=== PATIENT | female | born 1965 | race Caucasian/White ===

== ENCOUNTER 2017-01-04 13:19 | Inpatient (IN) | payer BC ==
[~2017-01-04] VITALS: Ht 162.6 cm; Wt 103.0 kg
[2017-01-04] MEDS ORDERED: ACETAMINOPHEN 325 MG TABLET PO ONE (13:45)
[2017-01-04] MEDS ORDERED: IV NORMAL SALINE 1,000ML 1,000 ML IV SCH (13:45)
[2017-01-04] MEDS ORDERED: VANCOMYCIN 1 GM in IV NORMAL SALINE 250ML 250 ML IV ONE (14:00)
[2017-01-04] MEDS ORDERED: ONDANSETRON PF 4 MG/2 ML VIAL. IV ONE (14:00)
[2017-01-04] MEDS ORDERED: VANCOMYCIN 2 GM in IV NORMAL SALINE 500ML 500 ML IV ONE (14:15)
[2017-01-04 14:20] LABS: BASO % 0 % (0-3); EOS % 0 % (0-3); HEMATOCRIT 40.8 % (36.0-47.0); HEMOGLOBIN 13.9 g/dL (12.0-15.5); LYMPH # 0.8 x10^3/uL (1.0-4.8); LYMPH % 4 % (24-48); MEAN CORPUSCULAR HEMOGLOBIN 29 pg (25-35); MEAN CORPUSCULAR HGB CONC 34 g/dL (31-37); MEAN CORPUSCULAR VOLUME 85 fL (79-100); MONO # 1.1 x10^3/uL (0.0-1.1); MONO % 5 % (0-9); NEUT % 91 % (31-73); PLATELET COUNT 220 x10^3/uL (140-400); RED BLOOD COUNT 4.79 x10^6/uL (3.50-5.40); RED CELL DISTRIBUTION WIDTH 12.8 % (11.5-14.5)
[2017-01-04 14:22] LABS: ALBUMIN 3.7 g/dL (3.4-5.0); CALCIUM 8.8 mg/dL (8.5-10.1); CREATININE 0.9 mg/dL (0.6-1.0); GFR 65.5; POTASSIUM 3.7 mmol/L (3.5-5.1); TOTAL BILIRUBIN 0.8 mg/dL (0.2-1.0); TOTAL PROTEIN 7.3 g/dL (6.4-8.2)
--- NOTE | 2017-01-04 14:41 | PHYS DOC ---
Past History Past Medical History: No Pertinent History Past Surgical History: Hysterectomy Alcohol Use: Occasionally Drug Use: None Adult General Chief Complaint Chief Complaint: ALLERGIC REACTION HPI HPI Patient is a 51-year-old female who presents ambulatory to the ED with the complaint of facial redness and swelling, which she had attributed to an allergic reaction. A few days ago, the patient had pain at the base of her skull which ended up going down into her neck and up over the top of her head, mostly painful on the left side of her head. She saw her doctor, they thought maybe it was a migraine. She has been under increased stress. They prescribed Fioricet which she has been taking since last night without relief. She had mild swelling and redness of her face yesterday, it's much worse this morning. She also had a temp of 101 yesterday, she did not know what the source was. Patient denies itching at any time. She has not had any skin lesions, swelling, redness, hives, rash, etc., anywhere else on her body. She denies any injury or bug bite that she knows that might have started this. She's never had anything like this before. Review of Systems Review of Systems Constitutional: Fever first noted yesterday to 101.3 Eyes: She has swelling and redness of the eyelids but the eyes are not affected HENT: Denies nasal congestion or sore throat [] Respiratory: Denies cough or shortness of breath [] Cardiovascular: Denies chest pain GI: Nausea, no vomiting. : Denies dysuria or hematuria [] Musculoskeletal: Denies back pain or joint pain [] Integument: As in history of present illness Neurologic: As in history of present illness Current Medications Current Medications Current Medications Medications (Trade) Dose Ordered Sig/[facility] Start Time Stop Time Status Last Admin Dose Admin Acetaminophen (Tylenol) 650 mg 1X ONCE 01/04/17 13:45 01/04/17 13:46 DC 01/04/17 14:03 625 MG Fentanyl Citrate (Fentanyl 2ml Vial) 50 mcg PRN Q15MIN PRN 01/04/17 14:00 01/05/17 13:59 01/04/17 14:06 50 MCG Ondansetron HCl (Zofran) 4 mg 1X ONCE 01/04/17 14:00 01/04/17 14:01 DC 01/04/17 14:07 4 MG Sodium Chloride 1,000 ml @ 1,000 mls/hr Q1H 01/04/17 13:45 01/04/17 14:44 01/04/17 14:06 1,000 MLS/HR Vancomycin HCl 1 gm/Sodium Chloride 250 ml @ 250 mls/hr 1X ONCE 01/04/17 14:00 01/04/17 14:11 DC Vancomycin HCl 2 gm/Sodium Chloride 500 ml @ 250 mls/hr 1X ONCE 01/04/17 14:15 01/04/17 16:14 01/04/17 14:16 250 MLS/HR Allergies Allergies Allergies Coded Allergies Type Severity Reaction Last Updated Verified No Known Drug Allergies 02/28/15 No Physical Exam Physical Exam Constitutional: Well developed, well nourished, ambulatory, alert, mentating normally, temp 101. HENT: Normocephalic, atraumatic, scalp has a few scattered slightly pinkish red areas, no skin breakdown that I can see. Left external ear/arm: Is moderately red, hot, and swollen. There does not appear to be external otitis or discharge within the EAC. Right ear and EAC normal. Patient has swelling and redness symmetrically bilaterally of the face, both eyelids, upper and lower, nose, cheeks. It is markedly red, warm, and tender. No swelling or lesions of the mouth, or intraorally. Mucous membranes moist. No vesicles. Eyes: conjunctiva normal, no discharge. [] Neck: Normal range of motion, no tenderness, supple, no stridor. [] Cardiovascular:Heart rate regular rhythm, no murmur [] Lungs & Thorax: Bilateral breath sounds clear to auscultation [] Skin: Warm, dry, see above for face, no skin lesions noted below the level of the face. Extremities: No tenderness, no cyanosis, no clubbing, ROM intact, no edema. [] Neurologic: Alert and oriented X 3, normal motor function, no focal deficits noted. [] Current Patient Data Vital Signs Vital Signs Date Time Temp Pulse Resp B/P (MAP) Pulse Ox O2 Delivery O2 Flow Rate FiO2 01/04/17 14:06 20 95 01/04/17 13:20 101.1 95 Room Air Lab Results Laboratory Tests Test 01/04/17 13:50 White Blood Count 23.0 x10^3/uL (4.0-11.0) H Red Blood Count 4.79 x10^6/uL (3.50-5.40) Hemoglobin 13.9 g/dL (12.0-15.5) Hematocrit 40.8 % (36.0-47.0) Mean Corpuscular Volume 85 fL (79-100) Mean Corpuscular Hemoglobin 29 pg (25-35) Mean Corpuscular Hemoglobin Concent 34 g/dL (31-37) Red Cell Distribution Width 12.8 % (11.5-14.5) Platelet Count 220 x10^3/uL (140-400) Neutrophils (%) (Auto) 91 % (31-73) H Lymphocytes (%) (Auto) 4 % (24-48) L Monocytes (%) (Auto) 5 % (0-9) Eosinophils (%) (Auto) 0 % (0-3) Basophils (%) (Auto) 0 % (0-3) Neutrophils # (Auto) 21.0 x10^3uL (1.8-7.7) H Lymphocytes # (Auto) 0.8 x10^3/uL (1.0-4.8) L Monocytes # (Auto) 1.1 x10^3/uL (0.0-1.1) Eosinophils # (Auto) 0.0 x10^3/uL (0.0-0.7) Basophils # (Auto) 0.0 x10^3/uL (0.0-0.2) Platelet Estimate Pending Sodium Level 132 mmol/L (136-145) L Potassium Level 3.7 mmol/L (3.5-5.1) Chloride Level 97 mmol/L (98-107) L Carbon Dioxide Level 24 mmol/L (21-32) Anion Gap 11 (6-14) Blood Urea Nitrogen 10 mg/dL (7-20) Creatinine 0.9 mg/dL (0.6-1.0) Estimated GFR (Cockcroft-Gault) 65.5 BUN/Creatinine Ratio 11 (6-20) Glucose Level 121 mg/dL (70-99) H Lactic Acid Level 1.0 mmol/L (0.4-2.0) Calcium Level 8.8 mg/dL (8.5-10.1) Total Bilirubin 0.8 mg/dL (0.2-1.0) Aspartate Amino Transferase (AST) 147 U/L (15-37) H Alanine Aminotransferase (ALT) 238 U/L (14-59) H Alkaline Phosphatase 116 U/L (46-116) Total Protein 7.3 g/dL (6.4-8.2) Albumin 3.7 g/dL (3.4-5.0) Albumin/Globulin Ratio 1.0 (1.0-1.7) EKG EKG [] Radiology/Procedures Radiology/Procedures [] Course & Med Decision Making Course & Med Decision Making Pertinent Labs and Imaging studies reviewed. (See chart for details) 51-year-old female with facial swelling, redness, and pain, with fever to 101, which started yesterday but is much worse today. The patient thought she had an allergic reaction because she started a new medication last night. The medication was Fioricet. I do not believe her symptoms are due to an allergic reaction. There has been no itching. She has no lesions or redness below the face. I believe her symptoms are from facial cellulitis. White count is 23,000. Lactic acid within normal limits. Due to the acuteness of onset, the patient's nausea and fever, I believe the patient should be hospitalized for IV antibiotics. I discussed this with the patient who is agreeable. I discussed the case with Dr. Navarro, who will admit the patient. We discussed antibiotic choice. I started the patient on vancomycin in the ED and we discussed continuing that and adding Zosyn. I wrote bridge orders. We agreed that the patient would be inpatient status. After the vancomycin had been running about 30 minutes, ED RN informed me that the patient feels itchy. The vancomycin was temporarily stopped and the patient was medicated with IV Benadryl and Solu-Medrol. I do believe we should be covering for MRSA and if the patient is able to tolerate vancomycin that would be my preference. [] Dragon Disclaimer Dragon Disclaimer This chart was dictated in whole or in part using Voice Recognition software in a busy, high-work load, and often noisy Emergency Department environment. It may contain unintended and wholly unrecognized errors or omissions. Departure Departure: Impression: Primary Impression: Facial cellulitis Disposition: ADMITTED INPATIENT Admitting Physician: Shauna Navarro Condition: STABLE Referrals: GINA WARD PAC (PCP) CHILO MIGUEL MD Jan 04, 2017 14:41
[2017-01-04] MEDS ORDERED: ONDANSETRON PF 4 MG/2 ML VIAL. IV PRN (14:45)
[2017-01-04] MEDS ORDERED: methylPREDNISolone SOD SUCC PF 125 MG/2 ML VIAL. IV SCH (15:00)
[2017-01-04] MEDS: IV NORMAL SALINE 1,000ML 1,000 ML IV SCH ×2 (15:00→21:15)
[2017-01-04] MEDS: diphenhydrAMINE 50 MG/ML VIAL IVP PRN (15:01)
[2017-01-04 15:16] LABS: % LYMPHS 4 % (24-48); % MONOS 4 % (0-10); % SEGS 92 % (35-66)
[2017-01-04 15:17] LABS: PLT ESTIMATE ADEQUATE (ADEQUATE)
[2017-01-04 16:00] VITALS: BP 121/76
[2017-01-04] MEDS: VANCOMYCIN PER PHARMACY MC PRN (16:02)
[2017-01-04] MEDS ORDERED: FLU VACC QS2017-18 (36MOS+)/PF 0.5 ML SYRINGE. VAX IM ONE (17:30)
[2017-01-04] MEDS ORDERED: CITA20TA5 PO (17:51)
[2017-01-04] MEDS ORDERED: BUTA1TAB28 PO (17:54)
[2017-01-04] MEDS ORDERED: BUTALB/APAP/CAFEIN 50/325/40MG TABLET. PO PRN (18:15)
[2017-01-04] MEDS: PIPERACILLIN/TAZOBACTAM 3.375 GM in IV NORMAL SALINE 50ML 50 ML IV SCH ×2 (18:16→23:58)
[2017-01-04 19:30] VITALS: BP 114/64
[2017-01-04] MEDS: ASCORBIC ACID 500 MG TABLET PO SCH (21:15)
[2017-01-04] MEDS: LACTOBACILLUS ACIDOPH & BULGAR 1 TABLET. PO SCH (21:15)
[2017-01-04 23:21] VITALS: BP 100/58
[2017-01-05] MEDS: diphenhydrAMINE 50 MG/ML VIAL IVP PRN ×3 (02:28→16:19)
[2017-01-05] MEDS: KETOROLAC 30 MG/ML VIAL. IV PRN ×3 (02:28→19:45)
[2017-01-05] MEDS: VANCOMYCIN 1.5 GM in IV NORMAL SALINE 500ML 500 ML IV SCH ×2 (02:28→16:21)
[2017-01-05 05:56] VITALS: BP 120/72
[2017-01-05] MEDS: PIPERACILLIN/TAZOBACTAM 3.375 GM in IV NORMAL SALINE 50ML 50 ML IV SCH ×3 (06:04→21:34)
[2017-01-05 08:16] LABS: BASO % 0 % (0-3); EOS % 0 % (0-3); HEMATOCRIT 38.3 % (36.0-47.0); HEMOGLOBIN 12.7 g/dL (12.0-15.5); LYMPH % 5 % (24-48); MEAN CORPUSCULAR HEMOGLOBIN 29 pg (25-35); MEAN CORPUSCULAR HGB CONC 33 g/dL (31-37); MEAN CORPUSCULAR VOLUME 86 fL (79-100); MONO # 0.9 x10^3/uL (0.0-1.1); MONO % 4 % (0-9); NEUT # 21.5 x10^3uL (1.8-7.7); NEUT % 92 % (31-73); PLATELET COUNT 219 x10^3/uL (140-400); RED BLOOD COUNT 4.44 x10^6/uL (3.50-5.40); RED CELL DISTRIBUTION WIDTH 13.2 % (11.5-14.5); WHITE BLOOD COUNT 23.4 x10^3/uL (4.0-11.0)
[2017-01-05 08:23] LABS: ALBUMIN 2.7 g/dL (3.4-5.0); ALBUMIN/GLOBULIN RATIO 0.7 (1.0-1.7); MAGNESIUM 2.1 mg/dL (1.8-2.4); POTASSIUM 3.8 mmol/L (3.5-5.1); TOTAL BILIRUBIN 0.4 mg/dL (0.2-1.0); TOTAL PROTEIN 6.7 g/dL (6.4-8.2)
[2017-01-05] MEDS: CITALOPRAM 20 MG TABLET. PO SCH (08:24)
[2017-01-05] MEDS: LACTOBACILLUS ACIDOPH & BULGAR 1 TABLET. PO SCH ×2 (08:24→21:34)
[2017-01-05] MEDS: ASCORBIC ACID 500 MG TABLET PO SCH (08:24)
--- NOTE | 2017-01-05 10:20 | RAD ---
CT scan of the head without contrast 01/05/2017 Clinical history: Sinus pressure and fevers. Technique: Unenhanced, contiguous, 5 mm axial sections were obtained through the head. One or more of the following individualized dose reduction techniques were utilized for this study: 1. Automated exposure control. 2. Adjustment of the mA and/or kV according to patient size. 3. Use of iterative reconstruction technique. Findings: The ventricles and sulci are within normal limits in size and configuration. No area of abnormal attenuation is involving the brain parenchyma. No extra-axial fluid collection is seen. No skull fracture is noted. Impression: Negative study. CT scan of the paranasal sinuses/face without contrast 01/05/2017 Clinical history: Sinus pressure. Fevers. Technique: Unenhanced, contiguous, 0.625 mm axial sections were obtained through the paranasal sinuses. 3 mm reconstructed axial and 5 mm reconstructed sagittal and coronal images were obtained. One or more of the following individualized dose reduction techniques were utilized for this study: 1. Automated exposure control. 2. Adjustment of the mA and/or kV according to patient size. 3. Use of iterative reconstruction technique. Findings: The paranasal sinuses are well are aerated and are clear. No air-fluid level is seen. The mastoid air cells and middle ear cavities are well aerated and are clear. The ostiomeatal units are patent bilaterally. There are small bilateral kieran bullosa. The mucosal structures of the nasopharynx, oropharynx and hypopharynx are within normal limits. Prominent likely reactive lymph nodes are seen throughout the superior neck. No abnormal fluid collection is seen. The parotid and submandibular glands are within normal limits. Preseptal soft tissue swelling is seen involving the right orbit. The orbits are otherwise within normal limits. Impression: Preseptal soft tissue swelling is seen involving the right orbit. Otherwise negative study.
[2017-01-05] MEDS: IV NORMAL SALINE 1,000ML 1,000 ML IV SCH (11:00)
[2017-01-05 11:33] VITALS: BP 149/51
[2017-01-05] MEDS ORDERED: methylPREDNISolone SOD SUCC PF 40 MG/ML VIAL. IV ONE (13:45)
--- NOTE | 2017-01-05 14:10 | HP ---
ADMIT DATE: 01/04/2017 REASON FOR ADMISSION: Facial swelling and pain. HISTORY OF PRESENT ILLNESS: This is a 51-year-old female who presented to the Emergency Room yesterday complaining of facial redness and swelling, which she felt was an allergic reaction, although she cannot recall being bit by anything. The patient had pain at the base of her skull a couple of days ago and was going down into her neck and over the top of her head and mostly painful on the left side of her head. She saw her doctor and was prescribed Fioricet for migraine. However, she did not have any relief and had some mild facial swelling yesterday, but much worse this morning, also had a temperature and complaining of a slight sore throat. PAST MEDICAL HISTORY: Negative. She does have a history of MRSA. PAST SURGICAL HISTORY: She has had back surgery and hysterectomy. MEDICATIONS: None. ALLERGIES: None. FAMILY HISTORY: Father with glaucoma. Mother with glaucoma. HABITS: No tobacco, drugs. Social alcohol. REVIEW OF SYSTEMS: As stated, some slight tenderness behind the left ear. There is mild itching of the face and tenderness of the face. PHYSICAL EXAMINATION: VITAL SIGNS: Temperature yesterday afternoon was 101, now 97.9; pulse 54, blood pressure 149/51, pulse ox 97% on room air. HEENT: Left external ear is swollen, right less so. The TMs are intact with a good cone of light. The eyelids are very swollen with soft tissue swelling, but not injected. Nose is swollen, face swollen. Throat is clear. Mildly injected in the posterior pharynx. NECK: With some positive anterior cervical lymph nodes. LUNGS: Clear to auscultation. CARDIOVASCULAR: Regular rhythm and rate without murmur. ABDOMEN: Soft, nontender. EXTREMITIES: Without edema. LABORATORY DATA: White count is 23,000 yesterday and is still 23.4 this morning; 92% neutrophils. Chemistry, some elevated liver function tests, which are coming down now. CT of the face and head are negative except for soft tissue swelling and some reactive lymph nodes. Strep screen is pending. ASSESSMENT: 1. Presumed facial cellulitis 2. Leukocytosis, suspect sepsis. The blood cultures are pending. Also, MRSA screen is pending. PLAN: She is receiving vancomycin and Zosyn and symptomatic medication and a dose of Solu-Medrol yesterday and today and we will continue to monitor closely. MOE CRISTINA DO DR: JOSE/skinny JOB#: [id number] / [id number]
[2017-01-05 15:01] VITALS: BP 116/78
[2017-01-05 20:45] VITALS: BP 134/87
[2017-01-05 23:58] VITALS: BP 132/88
[2017-01-06 02:05] LABS: BASO % 0 % (0-3); EOS % 0 % (0-3); HEMOGLOBIN 12.1 g/dL (12.0-15.5); LYMPH # 1.2 x10^3/uL (1.0-4.8); LYMPH % 7 % (24-48); MEAN CORPUSCULAR HEMOGLOBIN 29 pg (25-35); MEAN CORPUSCULAR HGB CONC 34 g/dL (31-37); MEAN CORPUSCULAR VOLUME 86 fL (79-100); MONO # 0.8 x10^3/uL (0.0-1.1); MONO % 4 % (0-9); NEUT # 16.7 x10^3uL (1.8-7.7); NEUT % 89 % (31-73); PLATELET COUNT 205 x10^3/uL (140-400); RED BLOOD COUNT 4.17 x10^6/uL (3.50-5.40); RED CELL DISTRIBUTION WIDTH 13.3 % (11.5-14.5); WHITE BLOOD COUNT 18.7 x10^3/uL (4.0-11.0)
[2017-01-06 02:16] LABS: ALBUMIN 2.6 g/dL (3.4-5.0); ALBUMIN/GLOBULIN RATIO 0.7 (1.0-1.7); CALCIUM 8.3 mg/dL (8.5-10.1); CREATININE 0.9 mg/dL (0.6-1.0); GFR 65.5; MAGNESIUM 2.2 mg/dL (1.8-2.4); POTASSIUM 4.5 mmol/L (3.5-5.1); TOTAL BILIRUBIN 0.2 mg/dL (0.2-1.0); TOTAL PROTEIN 6.4 g/dL (6.4-8.2); VANC TR 14.7 mcg/mL (10.0-20.0)
[2017-01-06] MEDS: diphenhydrAMINE 50 MG/ML VIAL IVP PRN ×2 (02:40→13:43)
[2017-01-06] MEDS: VANCOMYCIN 1.5 GM in IV NORMAL SALINE 500ML 500 ML IV SCH ×2 (02:41→15:37)
[2017-01-06] MEDS: VANCOMYCIN PER PHARMACY MC PRN (03:36)
[2017-01-06] MEDS: PIPERACILLIN/TAZOBACTAM 3.375 GM in IV NORMAL SALINE 50ML 50 ML IV SCH ×3 (05:34→22:40)
[2017-01-06 06:15] VITALS: BP 154/70
[2017-01-06] MEDS: ACETAMINOPHEN 325 MG TABLET PO PRN (07:40)
[2017-01-06] MEDS: LACTOBACILLUS ACIDOPH & BULGAR 1 TABLET. PO SCH ×2 (08:18→21:10)
[2017-01-06] MEDS: ASCORBIC ACID 500 MG TABLET PO SCH (08:19)
[2017-01-06] MEDS: CITALOPRAM 20 MG TABLET. PO SCH (08:19)
[2017-01-06 10:49] VITALS: BP 168/85
[2017-01-06] MEDS ORDERED: diphenhydrAMINE HCL 25 MG CAPSULE PO ONE (14:15)
[2017-01-06] MEDS: HYDROcodone/APAP 5/325MG 1 TAB TABLET PO PRN ×2 (14:46→21:14)
[2017-01-06 14:47] VITALS: BP 148/87
[2017-01-06 20:09] VITALS: BP 141/91
[2017-01-07] MEDS: KETOROLAC 30 MG/ML VIAL. IV PRN (01:17)
[2017-01-07] MEDS: diphenhydrAMINE 50 MG/ML VIAL IVP PRN ×2 (01:18→14:12)
--- NOTE | 2017-01-07 01:18 | PN ---
DATE: 01/04/2017 SUBJECTIVE: The patient is sitting on the edge of the bed comfortably in no apparent distress, continued to complain of back pain, headache and itching and requesting Benadryl before treatment with vancomycin, continued to have some periorbital swelling. PHYSICAL EXAMINATION: GENERAL: When I examined her; however, she looked well and was clearly in no apparent respiratory distress. No pallor, jaundice, cyanosis, lymphadenopathy, or thyromegaly. No jugular venous distention. No limb edema. VITAL SIGNS: Her heart rate was 53, blood pressure was 168/85, temperature was 97.6, respiratory rate 20 and oxygen saturation was 96%. HEAD, EYES, EARS, NOSE AND THROAT: Showed normocephalic, atraumatic. NECK: Supple. HEART: Showed normal first and second heart sounds with no gallop, rub or murmur. CHEST: Clear to auscultation. No crepitation or rhonchi. ABDOMEN: Distended, soft, nontender. NEUROLOGIC: She is awake, alert, responding appropriately. Cranial nerves intact. She moves all her extremities without difficulty. She ambulates without assistance or assistive devices. SKIN: Examination of the skin of the face showed that she has facial erythema involving both sides and across the nasal bridge. She has also marked periorbital swelling. Her intake over the last 24 hours was 2700, no output was recorded. LABORATORY DATA: Her lab work this morning showed a white cell count of 18,700, hemoglobin 12, hematocrit 36, MCV 86 and platelet count 205,000 with normal manual differential. Her chemistry showed that her serum sodium was 139, potassium 4.5, chloride was 108, bicarbonate 27, anion gap of 4, BUN 15, creatinine 0.9, estimated GFR was 65 mL per minute. Her glucose 147, calcium was 8.3, magnesium 2.2. Total bilirubin is normal. Her alkaline phosphatase was normal; however, her AST and ALT are elevated. Her total protein was 6.4. Albumin was 2.6. Her vancomycin trough level was 14.7. Her group A streptococcus rapid was negative. Her blood cultures are so far negative. She did have a CT scan of the head and facial bones, which basically showed the ventricles and sulci within normal limits in size and configuration. No area of abnormal attenuation involving the brain parenchyma. No extraaxial fluid collection is seen. No skull fracture is noted. The paranasal sinuses are well aerated and are clear. No air fluid level is seen. The mastoid air cells and middle ear cavities are well aerated and are clear. The ostiomeatal units are patent bilaterally. There are small bilateral kieran bullosa. The mucosal structures, nasopharynx, oropharynx and hypopharynx are within normal limits. Prominent likely reactive lymph nodes are seen throughout the of her neck. No abnormal fluid collection is seen. The biopsy of the submandibular glands are within normal limits. Preseptal soft tissue swelling is seen involving the right orbit. The orbits are; otherwise, within normal limits. PLAN: Obviously the patient seems to be responding clinically. She is afebrile. Her white cell count is trending down. She continued to have complaint of back pain as she has had five surgical operations before. My plan is to arrange for her to have a PICC line and continue in meanwhile with the IV vancomycin and Zosyn, start her on hydrocodone. I will repeat all her lab works tomorrow and decide on further management accordingly. BILLY PRIETO MD DR: SOLOMON/skinny JOB#: [id number] / [id number]
[2017-01-07] MEDS: VANCOMYCIN 1.5 GM in IV NORMAL SALINE 500ML 500 ML IV SCH ×2 (01:43→13:54)
[2017-01-07] MEDS: PIPERACILLIN/TAZOBACTAM 3.375 GM in IV NORMAL SALINE 50ML 50 ML IV SCH ×2 (05:09→13:54)
[2017-01-07 05:48] VITALS: BP 145/94
[2017-01-07 06:00] LABS: BASO # 0.1 x10^3/uL (0.0-0.2); BASO % 1 % (0-3); EOS # 0.5 x10^3/uL (0.0-0.7); EOS % 4 % (0-3); HEMATOCRIT 34.9 % (36.0-47.0); HEMOGLOBIN 11.9 g/dL (12.0-15.5); LYMPH # 2.3 x10^3/uL (1.0-4.8); LYMPH % 17 % (24-48); MEAN CORPUSCULAR HEMOGLOBIN 29 pg (25-35); MEAN CORPUSCULAR HGB CONC 34 g/dL (31-37); MEAN CORPUSCULAR VOLUME 86 fL (79-100); MONO % 8 % (0-9); NEUT # 9.6 x10^3uL (1.8-7.7); NEUT % 71 % (31-73); PLATELET COUNT 262 x10^3/uL (140-400); RED BLOOD COUNT 4.07 x10^6/uL (3.50-5.40); RED CELL DISTRIBUTION WIDTH 12.9 % (11.5-14.5); WHITE BLOOD COUNT 13.6 x10^3/uL (4.0-11.0)
[2017-01-07 06:11] LABS: ALBUMIN 2.4 g/dL (3.4-5.0); ALBUMIN/GLOBULIN RATIO 0.7 (1.0-1.7); C REACTIVE PROTEIN 62.1 mg/L (0-3.3); CALCIUM 7.5 mg/dL (8.5-10.1); CREATININE 0.9 mg/dL (0.6-1.0); GFR 65.5; POTASSIUM 3.7 mmol/L (3.5-5.1); TOTAL BILIRUBIN 0.3 mg/dL (0.2-1.0); TOTAL PROTEIN 5.9 g/dL (6.4-8.2)
[2017-01-07 07:04] LABS: SEDIMENTATION RATE 28 (0-25)
[2017-01-07] MEDS: LACTOBACILLUS ACIDOPH & BULGAR 1 TABLET. PO SCH (08:00)
[2017-01-07] MEDS: ASCORBIC ACID 500 MG TABLET PO SCH (08:01)
[2017-01-07] MEDS: CITALOPRAM 20 MG TABLET. PO SCH (08:02)
[2017-01-07] MEDS: ACETAMINOPHEN 325 MG TABLET PO PRN (08:02)
[2017-01-07 10:40] VITALS: BP 163/96
[2017-01-07] MEDS: HYDROcodone/APAP 5/325MG 1 TAB TABLET PO PRN (11:12)
[2017-01-07] MEDS ORDERED: DAPT500V3 IV (13:28)
[2017-01-07] MEDS ORDERED: ONDA4TAB10 SL (13:30)
[2017-01-07] MEDS ORDERED: HYDR-2758 PO (13:30)
[2017-01-07 13:46] VITALS: BP 169/88
== END 2017-01-07 16:46 | disposition home or self-care (01) | DRG 872 ==
LOC: ER 13:19 → 1 SOUTH 14:40 → ER 15:40
PROVIDERS: ADMIT Family Medicine; ATTEND Family Medicine
PROC: 02HV33Z Insertion of Infusion Device into Superior Vena Cava, Percutaneous Approach (ICD-10-PCS; principal; 2017-01-06)
DX: A41.9 Sepsis, unspecified organism (principal); D72.829 Elevated white blood cell count, unspecified; L03.211 Cellulitis of face; Z86.14 Personal history of Methicillin resistant Staphylococcus aureus infection; Z90.710 Acquired absence of both cervix and uterus; Z83.511 Family history of glaucoma
CPT/HCPCS: 36415; 36569; 70450; 70486; 80053; 80202; 83605; 83735; 85007; 85025; 85651; 86140; 87040; 87070; 87641; 87880; 90686; 96365; 96375; J1200; J1885; J2405; J2543; J2920; J2930; J3010; J3370; J7040; Q0163; 99285-25; J7030

== ENCOUNTER 2017-11-20 21:07 | Inpatient (IN) | payer BC ==
[~2017-11-20] VITALS: Ht 175.3 cm; Wt 86.2 kg
[~2017-11-20 21:07] MED LIST: BUTA1TAB28 PO; CITA20TA6 PO; DAPT500V3 IV; HYDR-2758 PO; ONDA4TAB10 SL
--- NOTE | 2017-11-20 21:16 | ED.ADGEN ---
Past History Past Medical History: No Pertinent History, Arthritis, Other Past Surgical History: Hysterectomy, Other Alcohol Use: Occasionally Drug Use: None Adult General Chief Complaint Chief Complaint ".. I ve gotten sick all of sudden.. fever, chills.... back pain... nausea,.. ".." It feels like I had the flu"... HPI HPI Patient is a 52 year old female who presents with above hx and complaints. Patient has complaints of generalized malaise, myalgia, arthralgia, fever and chills. Patient has some nausea and complaints of frontal headache. Patient states all her joints and muscles hurt so bad it is difficult to even walk. Patient has had a somewhat nonproductive cough. Patient denies any travel or specific ill contacts. Patient denies any history of immunosuppression. Patient does have a chronic history of back pain. Patient one time had a spine stimulator placement. 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 Patient was noted to have generalized rigors and fever on initial evaluation. Review of Systems Review of Systems Constitutional: Complains fever or chills [] Eyes: Denies change in visual acuity, redness, or eye pain [] HENT: Denies nasal congestion or sore throat [] Respiratory: Denies cough or shortness of breath [] Cardiovascular: No additional information not addressed in HPI [] GI: Complaints of generalized abdominal pain, nausea. Denies, vomiting, bloody stools or diarrhea [] : Denies dysuria or hematuria [] Musculoskeletal: Generalized back pain and joint pain [] Integument: Denies rash or skin lesions [] Neurologic: Denies headache, focal weakness or sensory changes [] Endocrine: Denies polyuria or polydipsia [] All other systems were reviewed and found to be within normal limits, except as documented in this note. Family History Family History Noncontributory Current Medications Current Medications Current Medications Medications (Trade) Dose Ordered Sig/[facility] Start Time Stop Time Status Last Admin Dose Admin Lactated Ringer's 1,000 ml @ 1,000 mls/hr Q1H 11/20/17 21:35 11/20/17 22:34 DC 11/20/17 22:08 1,000 MLS/HR Morphine Sulfate (Morphine 10mg Syringe) 10 mg 1X ONCE 11/20/17 22:00 11/20/17 22:01 DC 11/20/17 22:09 10 MG Ondansetron HCl (Zofran Odt) 8 mg 1X ONCE 11/20/17 22:00 11/20/17 22:01 DC 11/20/17 21:49 8 MG See nursing for home meds Allergies Allergies Allergies Coded Allergies Type Severity Reaction Last Updated Verified No Known Drug Allergies 02/28/15 No Physical Exam Physical Exam Constitutional: Moderate acute distress, non-toxic appearance. [] HENT: Normocephalic, atraumatic, bilateral external ears normal, oropharynx moist, no oral exudates, nose clear rhinorrhea Eyes: PERRLA, EOMI, conjunctiva normal, no discharge. [] Fundus benign Neck: Normal range of motion, no tenderness, supple, no stridor. [] Cardiovascular: Tachycardia Heart rate regular rhythm, no murmur [] Lungs & Thorax: Bilateral breath sounds clear to auscultation [] Abdomen: Bowel sounds normal, soft, no tenderness, no masses, no pulsatile masses. Old surgical scar Skin: Warm, dry, left ankle erythema, left ankle rash. [] Back: No tenderness, no CVA tenderness. [] Old surgical scars Extremities: Left calf tenderness, no cyanosis, no clubbing, ROM intact, left ankle edema. [] Neurologic: Alert and oriented X 3, normal motor function, normal sensory function, no focal deficits noted. []DTRs +2 at patella and brachial. Manager Intensive Care equal. Patient ambulatory Psychologic: Affect anxious, judgement normal, mood normal. [] Current Patient Data Vital Signs Vital Signs Date Time Temp Pulse Resp B/P (MAP) Pulse Ox O2 Delivery O2 Flow Rate FiO2 11/20/17 22:35 101 167/96 (119) 97 Room Air 11/20/17 22:09 26 11/20/17 21:38 102.4 Lab Results Laboratory Tests Test 11/20/17 21:55 11/20/17 22:15 White Blood Count 15.6 x10^3/uL (4.0-11.0) H Red Blood Count 5.03 x10^6/uL (3.50-5.40) Hemoglobin 14.3 g/dL (12.0-15.5) Hematocrit 43.1 % (36.0-47.0) Mean Corpuscular Volume 86 fL (79-100) Mean Corpuscular Hemoglobin 28 pg (25-35) Mean Corpuscular Hemoglobin Concent 33 g/dL (31-37) Red Cell Distribution Width 13.0 % (11.5-14.5) Platelet Count 220 x10^3/uL (140-400) Neutrophils (%) (Auto) 90 % (31-73) H Lymphocytes (%) (Auto) 4 % (24-48) L Monocytes (%) (Auto) 5 % (0-9) Eosinophils (%) (Auto) 0 % (0-3) Basophils (%) (Auto) 1 % (0-3) Neutrophils # (Auto) 13.9 x10^3uL (1.8-7.7) H Lymphocytes # (Auto) 0.6 x10^3/uL (1.0-4.8) L Monocytes # (Auto) 0.8 x10^3/uL (0.0-1.1) Eosinophils # (Auto) 0.0 x10^3/uL (0.0-0.7) Basophils # (Auto) 0.2 x10^3/uL (0.0-0.2) Segmented Neutrophils % 86 % (35-66) H Band Neutrophils % 4 % (0-9) Lymphocytes % 3 % (24-48) L Monocytes % 7 % (0-10) Eosinophils % 0 % (0-5) Basophils % 0 % (0-3) Toxic Vacuolation Present Platelet Estimate Adequate (ADEQUATE) Erythrocyte Sedimentation Rate 14 (0-25) Prothrombin Time 9.9 SEC (9.4-11.4) Prothrombin Time INR 1.0 (0.9-1.1) PTT 27 SEC (23-33) Sodium Level 133 mmol/L (136-145) L Potassium Level 3.8 mmol/L (3.5-5.1) Chloride Level 98 mmol/L (98-107) Carbon Dioxide Level 25 mmol/L (21-32) Anion Gap 10 (6-14) Blood Urea Nitrogen 11 mg/dL (7-20) Creatinine 0.9 mg/dL (0.6-1.0) Estimated GFR (Cockcroft-Gault) 65.2 Glucose Level 128 mg/dL (70-99) H Lactic Acid Level 1.0 mmol/L (0.4-2.0) Calcium Level 8.8 mg/dL (8.5-10.1) Magnesium Level 1.8 mg/dL (1.8-2.4) Total Bilirubin 0.6 mg/dL (0.2-1.0) Direct Bilirubin 0.2 mg/dL (0.0-0.2) Aspartate Amino Transferase (AST) 59 U/L (15-37) H Alanine Aminotransferase (ALT) 64 U/L (14-59) H Alkaline Phosphatase 91 U/L (46-116) Creatine Kinase 73 U/L (26-192) Creatine Kinase MB (Mass) < 0.5 ng/mL (0.0-3.6) Creatine Kinase MB Relative Index 0.7 % (0-4) Troponin I Quantitative < 0.017 ng/mL (0-0.055) C-Reactive Protein 90.7 mg/L (0-3.3) H PG-Dbb-A-Type Natriuretic Peptide 207 pg/mL (0-124) H Total Protein 7.5 g/dL (6.4-8.2) Albumin 3.7 g/dL (3.4-5.0) Lipase 106 U/L (73-393) Influenza Type A (Rapid) Negative (NEGATIVE) Influenza Type B (Rapid) Negative (NEGATIVE) Group A Streptococcus Rapid Negative (NEGATIVE) EKG EKG My interpretation of EKG shows a sinus rhythm at 90 bpm. Some nonspecific inferior changes. No findings acute STEMI of contralateral changes[] Radiology/Procedures Radiology/Procedures My interpretation of chest x-ray shows no acute cardio changes. Does have increased infiltrate on right lung field posterior. Has hardware from previous spine stimulator. Borderline cardiomegaly. My interpretation CT of head shows no shift, mass, edema, bleed, or fracture.[] Course & Med Decision Making Course & Med Decision Making Pertinent Labs and Imaging studies reviewed. (See chart for details) Discussed presentation, testing and tx. plan with Dr. Garza. Patient to be admitted to [facility] for further evaluation and treatment. [] Final Impression Final Impression 1. Fever[] 2. Pneumonia 3. Leukocytosis with Elev. Seg. 4. Hyponatremia 5. Elevated Sed. Rate 6. Elevated AST/ALT 7. Lt. Leg Cellulitis Dragon Disclaimer Dragon Disclaimer This electronic medical record was generated, in whole or in part, using a voice recognition dictation system. PAM GOLDBERG MD Nov 20, 2017 21:16
[2017-11-20] MEDS ORDERED: IV RINGERS SOLUTION,LACTATED 1,000 ML IV SCH (21:35)
[2017-11-20] MEDS ORDERED: MORPHINE SULFATE 10 MG/ML SYRINGE. SQ ONE ×2 (22:00→23:45)
[2017-11-20] MEDS ORDERED: ONDANSETRON ODT 4 MG TAB.RAPDIS PO ONE (22:00)
[2017-11-20 22:19] LABS: BASO # 0.2 x10^3/uL (0.0-0.2); BASO % 1 % (0-3); EOS % 0 % (0-3); HEMATOCRIT 43.1 % (36.0-47.0); HEMOGLOBIN 14.3 g/dL (12.0-15.5); LYMPH # 0.6 x10^3/uL (1.0-4.8); LYMPH % 4 % (24-48); MEAN CORPUSCULAR HEMOGLOBIN 28 pg (25-35); MEAN CORPUSCULAR HGB CONC 33 g/dL (31-37); MEAN CORPUSCULAR VOLUME 86 fL (79-100); MONO # 0.8 x10^3/uL (0.0-1.1); MONO % 5 % (0-9); NEUT # 13.9 x10^3uL (1.8-7.7); NEUT % 90 % (31-73); PLATELET COUNT 220 x10^3/uL (140-400); RED BLOOD COUNT 5.03 x10^6/uL (3.50-5.40); WHITE BLOOD COUNT 15.6 x10^3/uL (4.0-11.0)
[2017-11-20 22:42] LABS: ALBUMIN 3.7 g/dL (3.4-5.0); ALK PHOS 91 U/L (46-116); ALT (SGPT) 64 U/L (14-59); ANION GAP 10 (6-14); AST (SGOT) 59 U/L (15-37); BLOOD UREA NITROGEN 11 mg/dL (7-20); C REACTIVE PROTEIN 90.7 mg/L (0-3.3); CALCIUM 8.8 mg/dL (8.5-10.1); CARBON DIOXIDE 25 mmol/L (21-32); CHLORIDE 98 mmol/L (98-107); CREATININE 0.9 mg/dL (0.6-1.0); DIRECT BILIRUBIN 0.2 mg/dL (0.0-0.2); GFR 65.2; GLUCOSE 128 mg/dL (70-99); LIPASE 106 U/L (73-393); MAGNESIUM 1.8 mg/dL (1.8-2.4); POTASSIUM 3.8 mmol/L (3.5-5.1); SODIUM 133 mmol/L (136-145); TOTAL BILIRUBIN 0.6 mg/dL (0.2-1.0); TOTAL PROTEIN 7.5 g/dL (6.4-8.2)
[2017-11-20 22:50] LABS: INFLUENZA A PATIENT NEGATIVE (NEGATIVE); INFLUENZA B PATIENT NEGATIVE (NEGATIVE)
[2017-11-20 22:56] LABS: % BANDS 4 % (0-9); % BASOS 0 % (0-3); % EOS 0 % (0-5); % LYMPHS 3 % (24-48); % MONOS 7 % (0-10); % SEGS 86 % (35-66); PLT ESTIMATE ADEQUATE (ADEQUATE)
[2017-11-20 22:57] LABS: TOXIC VACUOLATION PRESENT
--- NOTE | 2017-11-20 23:08 | RAD ---
CT HEAD INDICATION: severe headache, fever COMPARISON: 01/05/2017 TECHNIQUE: 5 mm contiguous axial images were obtained from the skull base to the vertex in both bone and soft tissue algorithm. Exposure: One or more of the following individualized dose reduction techniques were utilized for this examination: 1. Automated exposure control 2. Adjustment of the mA and/or kV according to patient size 3. Use of iterative reconstruction technique FINDINGS: No abnormal attenuation within the brain parenchyma. No evidence of acute intracranial hemorrhage. No extra-axial fluid collections. No mass effect or midline shift. Ventricular size is appropriate. Basal cisterns are patent. No fractures identified.Cobb-white differentiation is preserved.Globes and orbits are within normal limits. Paranasal sinuses and mastoid air cells are clear. IMPRESSION: No acute intracranial findings. Electronically signed by: Aron Pugh MD (11/20/2017 11:04 PM) [facility]
[2017-11-20 23:26] LABS: SEDIMENTATION RATE 14 (0-25)
[2017-11-20 23:28] LABS: BACTERIA,URINE FEW /HPF (0-FEW); BARBITURATES POS (NEG); BENZODIAZEPINES NEG (NEG); BILIRUBIN,URINE NEG (NEG); CANNABINOIDS NEG (NEG); CLARITY,URINE CLEAR; COCAINE NEG (NEG); COLOR,URINE YELLOW; GLUCOSE,URINE NEG (NEG); METHADONE NEG (NEG); NITRITE,URINE NEG (NEG); OPIATES POS (NEG); PHENCYCLIDINE NEG (NEG); RBC,URINE RARE /HPF (0-2); SQUAMOUS EPITHELIAL CELL,UR FEW /LPF; UROBILINOGEN,URINE 0.2 mg/dL (0.2 mg/dL)
[2017-11-20 23:31] LABS: AMPHETAMINE/METHAMPHETAMINE NEG (NEG)
[2017-11-20] MEDS ORDERED: cefTRIAXone IV Push 2 GM VIAL. IVP ONE (23:45)
[2017-11-20] MEDS ORDERED: ONDANSETRON PF 4 MG/2 ML VIAL. IV PRN (23:45)
[2017-11-21] MEDS ORDERED: VANCOMYCIN 2 GM in IV NORMAL SALINE 500ML 500 ML IV ONE ×2
[2017-11-21] MEDS ORDERED: VANCOMYCIN PER PHARMACY MC PRN
[2017-11-21] MEDS ORDERED: VANCOMYCIN 1 GM in IV NORMAL SALINE 250ML 250 ML IV ONE ×2
[2017-11-21] MEDS ORDERED: IV NORMAL SALINE 500ML 500 ML ONE ×2 (00:32→00:45)
[2017-11-21] MEDS ORDERED: VANCOMYCIN 1 GM VIAL. ONE (00:32)
[2017-11-21] MEDS ORDERED: ONDANSETRON PF 4 MG/2 ML VIAL. IV ONE (01:00)
[2017-11-21 03:13] VITALS: BP 108/69
[2017-11-21] MEDS ORDERED: ACETAMINOPHEN PO PRN (05:15)
[2017-11-21] MEDS ORDERED: BUTALBITAL PO PRN (05:15)
[2017-11-21] MEDS ORDERED: IPRATRPIUM/ALBUTEROL 0.5/2.5MG 3 ML NEBU. ONE (05:48)
[2017-11-21] MEDS: IPRATRPIUM/ALBUTEROL 0.5/2.5MG 3 ML NEBU. NEB SCH ×4 (05:53→20:36)
[2017-11-21 06:21] VITALS: BP 126/78
[2017-11-21 06:50] LABS: CALCIUM 8.1 mg/dL (8.5-10.1); CREATININE 1.6 mg/dL (0.6-1.0); GFR 33.6; POTASSIUM 4.4 mmol/L (3.5-5.1)
[2017-11-21 06:51] LABS: BASO % 0 % (0-3); EOS % 0 % (0-3); HEMATOCRIT 39.3 % (36.0-47.0); HEMOGLOBIN 13.1 g/dL (12.0-15.5); LYMPH % 5 % (24-48); MEAN CORPUSCULAR HEMOGLOBIN 29 pg (25-35); MEAN CORPUSCULAR HGB CONC 33 g/dL (31-37); MEAN CORPUSCULAR VOLUME 86 fL (79-100); MONO # 1.4 x10^3/uL (0.0-1.1); MONO % 7 % (0-9); NEUT # 17.5 x10^3uL (1.8-7.7); NEUT % 88 % (31-73); PLATELET COUNT 219 x10^3/uL (140-400); RED BLOOD COUNT 4.57 x10^6/uL (3.50-5.40); RED CELL DISTRIBUTION WIDTH 13.4 % (11.5-14.5); WHITE BLOOD COUNT 19.9 x10^3/uL (4.0-11.0)
[2017-11-21] MEDS: BUTALB/APAP/CAFEIN 50/325/40MG TABLET. PO PRN (07:12)
--- NOTE | 2017-11-21 08:58 | RAD ---
Chest, 2 views, 11/20/2017: HISTORY: Chest pain, fever Comparison is made to a study from 07/02/2011. Several unchanged electrodes are projected over the mid and lower thoracic spine. The heart size and pulmonary vascularity are normal. No pulmonary infiltrate is seen. There is no evidence of pleural fluid. Moderate spurring is present in the spine. IMPRESSION: No acute cardiopulmonary abnormality is detected. Electronically signed by: Luis Eduardo Barrientos MD (11/21/2017 8:54 AM) [facility]
[2017-11-21] MEDS: AZITHROMYCIN 250 MG TABLET. PO SCH (09:00)
[2017-11-21] MEDS ORDERED: CITALOPRAM 20 MG TABLET. PO SCH (09:00)
[2017-11-21] MEDS ORDERED: ENOXAPARIN ** NOTE DOSE ** SYRINGE SQ SCH (09:00)
[2017-11-21] MEDS ORDERED: IV NORMAL SALINE 1,000ML 1,000 ML IV ONE (09:00)
[2017-11-21] MEDS: IV NORMAL SALINE 1,000ML 1,000 ML IV SCH ×2 (10:00→19:56)
[2017-11-21 11:19] VITALS: BP 98/58
[2017-11-21] MEDS ORDERED: VANCOMYCIN 1.75 GM in IV NORMAL SALINE 500ML 500 ML IV SCH (13:00)
[2017-11-21] MEDS ORDERED: PROMETHAZINE 25 MG TABLET. PO ONE (13:30)
[2017-11-21] MEDS ORDERED: methylPREDNISolone SOD SUCC PF 125 MG/2 ML VIAL. IV ONE (13:30)
[2017-11-21 14:04] LABS: CALCIUM 7.6 mg/dL (8.5-10.1); CREATININE 1.8 mg/dL (0.6-1.0); GFR 29.3; POTASSIUM 3.7 mmol/L (3.5-5.1)
--- NOTE | 2017-11-21 15:35 | HP ---
ADMIT DATE: 11/20/2017 HISTORY OF PRESENT ILLNESS: The patient is a 52-year-old female patient who came to the Emergency Room complaining of having gotten sick all of a sudden, fever, chills, back pain, and nausea. The patient presented to the Emergency Room with above complaint. She has generalized malaise, myalgia, arthralgia, fever and chills. The patient has some nausea, complained of frontal headache. The patient stated that all her joints and muscles are so bad, it is difficult even to walk and had a somewhat nonproductive cough. Denied any travel or specific ill contact. She denied any history of immunosuppression. She is known to have chronic history of back pain. At one point in time, she had a spine stimulator placement; however, stimulator was removed because of resection approximately 16 years ago. She had also generalized rigors and fever. On initial evaluation, she was extensively evaluated in the Emergency Room and her lab work showed she had leukocytosis with a white cell count 15,600. Her chest x-ray showed there were no acute cardiopulmonary abnormalities detected and she was found to have cellulitis of her left lower extremity with hyponatremia and elevated liver enzyme and was admitted and was started on vancomycin, ceftriaxone as well as IV fluid together with therapeutic dose of Lovenox. PAST MEDICAL HISTORY: Significant for chronic back pain and facial cellulitis. PAST SURGICAL HISTORY: Significant for back surgery and hysterectomy. ALLERGIES: She has no known drug allergies. MEDICATIONS: She is currently on following medications: She is on butalbital, acetaminophen 1 tablet every 4-6 hours, citalopram hydrobromide 20 mg daily. FAMILY HISTORY: Significant for both parents with glaucoma. SOCIAL HISTORY: She does not smoke, drink alcohol or use recreational drugs. PHYSICAL EXAMINATION: VITAL SIGNS: On arrival to the Emergency Room, her heart rate was 98, blood pressure was 174/101, temperature was 102.4, respiratory rate 22, and oxygen saturation was 98%. HEAD, EYES, EARS, NOSE AND THROAT: Showed normocephalic, atraumatic. NECK: Supple. HEART: Showed normal first and second heart sounds with no gallop, rub or murmur. CHEST: Clear to auscultation. No crepitation or rhonchi. ABDOMEN: Distended, soft, nontender. No guarding or rigidity. No organomegaly. Hernial orifices intact. Bowel sounds normal. NEUROLOGIC: She was awake, alert, responding appropriately. Cranial nerves intact. There was no nuchal rigidity and Kernig's sign was negative. EXTREMITIES: She moves extremities without difficulty. She ambulates without assistance or assistive devices. LABORATORY AND DIAGNOSTIC DATA: Showed a white cell count of 15,600, hemoglobin 14, hematocrit 43, MCV 86 and platelet count of 220,000. Her chemistry showed serum sodium 133, potassium 3.8, chloride 98, bicarbonate 25, anion gap of 10, BUN 11, creatinine 0.9, estimated GFR was 65 mL per minute. Her glucose was 128, lactic acid was 1. Calcium was 8.8, magnesium was 1.8. Total bilirubin and alkaline phosphatase normal. AST and ALT were slightly elevated. Her C-reactive protein was high at 90 mg/dL. Total protein was 7.5, albumin 3.7. Her sedimentation rate was 14 mm per hour. Her prothrombin time was 9.9, INR of 1, aPTT was 27. Urinalysis showed the urine was yellow, clear with a pH of 5, specific gravity of less than 1.005. The urine was negative for protein, glucose, trace of ketones, moderate amount of blood, negative for nitrite and small amount of leukocyte esterase. There are rare rbc's, 1-4 wbc's, very few bacteria. Her toxic screen was positive for opiates and barbiturates, negative for all other drugs and her influenza A and B were negative. Group A streptococcus antigen rapid test was negative. CT scan of the head showed no abnormal attenuation within the brain parenchyma, no evidence of acute intracranial hemorrhage, no extraaxial fluid collection, no mass effect or midline shift. Ventricular size is appropriate. Basal cisterns are patent. No fracture identified. Cobb-white differentiation is preserved. Globes and orbits are within normal limits. Paranasal sinuses and mastoid air cells are clear. So, the patient was admitted with possible community-acquired pneumonia and left lower extremity cellulitis. The chest x-ray was basically unremarkable. It showed the heart size and pulmonary vascularity are normal. No pulmonary infiltrate is seen. There is no evidence of pleural fluid. Moderate sparing is present in the spine. Other issues include mild hyponatremia with a serum sodium of 133, elevated AST and ALT. PLAN: The patient was treated with IV vancomycin, Rocephin and Zithromax. We will follow her lab work and decide on further management accordingly. BILLY PRIETO MD DR: SOLOMON/skinny JOB#: [id number] / [id number]
[2017-11-21 15:59] VITALS: BP 116/72
[2017-11-21 19:00] VITALS: BP 125/69
[2017-11-21] MEDS: cefTRIAXone IV Push 1 GM VIAL. IVP SCH (19:56)
[2017-11-21] MEDS: LACTOBACILLUS RHAMNOSUS GG 1 CAPSULE. PO SCH (19:57)
[2017-11-21] MEDS: oxyCODONE IR 5 MG TABLET PO PRN (19:57)
[2017-11-21] MEDS: ENOXAPARIN 40 MG/0.4 ML SYRINGE. SQ SCH (19:57)
[2017-11-21 23:00] VITALS: BP 112/68
--- NOTE | 2017-11-21 23:18 | PN ---
DATE: 11/21/2017 SUBJECTIVE: The patient is resting, slightly propped up in bed, in no apparent distress. She continued to complain of headache. She has marked erythema in her dorsal aspect of left foot and her left leg with erythema extending to the posterior aspect, slightly higher than the anterior aspect. PHYSICAL EXAMINATION: GENERAL: When I examined her this afternoon, she looked well and was clearly in no apparent respiratory distress. No pallor, jaundice, cyanosis or thyromegaly. No jugular venous distension. No limb edema. VITAL SIGNS: Her heart rate was 77, blood pressure was 98/58, temperature was 100.8, respiratory rate 20 and oxygen saturation was 96%. HEAD, EYES, EARS, NOSE AND THROAT: Showed normocephalic, atraumatic. NECK: Supple. HEART: Showed normal first and second heart sounds. No gallop, rub or murmur. CHEST: Clear to auscultation. No crepitation or rhonchi. ABDOMEN: Distended, soft, nontender. NEUROLOGIC: She is awake, alert, responding appropriately. All cranial nerves are intact. She moves extremities without difficulty. She ambulates without assistance or assistive devices. LABORATORY DATA: This morning showed serum sodium is further down to 129, potassium 4.4, chloride 95, bicarbonate 26, anion gap of 8, BUN 14, creatinine 1.6. Estimated GFR was 33 mL per minute. Her glucose 132. Calcium was 8.1. White cell count went up further to 19,900, hemoglobin 13, hematocrit 39, MCV 86 and platelet count of 119,000. ASSESSMENT: 1. Left lower extremity cellulitis. 2. Hyponatremia. 3. Acute kidney injury. Creatinine has risen from 0.9 to 1.6. PLAN: My plan is to continue with IV Zyvox, IV Rocephin as well as oral Zithromax, although I am not really convinced that the patient has pneumonia. We will check her labs. She was given a liter of normal saline and continued 125 mL per hour. We will repeat her labs this afternoon and again tomorrow to make sure that kidney function is trending towards normal. BILLY PRIETO MD DR: SOLOMON/skinny JOB#: [id number] / [id number]
[2017-11-22] MEDS: IV NORMAL SALINE 1,000ML 1,000 ML IV SCH ×2 (04:51→13:37)
[2017-11-22] MEDS: IPRATRPIUM/ALBUTEROL 0.5/2.5MG 3 ML NEBU. NEB SCH ×3 (05:44→15:25)
[2017-11-22 06:54] LABS: ALBUMIN 2.7 g/dL (3.4-5.0); ALBUMIN/GLOBULIN RATIO 0.7 (1.0-1.7); CALCIUM 7.7 mg/dL (8.5-10.1); CREATININE 1.8 mg/dL (0.6-1.0); GFR 29.3; POTASSIUM 3.5 mmol/L (3.5-5.1); TOTAL BILIRUBIN 0.2 mg/dL (0.2-1.0); TOTAL PROTEIN 6.5 g/dL (6.4-8.2)
[2017-11-22 07:01] LABS: HEMATOCRIT 35.8 % (36.0-47.0); HEMOGLOBIN 11.8 g/dL (12.0-15.5); RED BLOOD COUNT 4.2 x10^6/uL (3.50-5.40); RED CELL DISTRIBUTION WIDTH 13.5 % (11.5-14.5); WHITE BLOOD COUNT 20.9 x10^3/uL (4.0-11.0)
[2017-11-22] MEDS: oxyCODONE IR 5 MG TABLET PO PRN (07:30)
[2017-11-22 08:18] VITALS: BP 110/73
[2017-11-22] MEDS: AZITHROMYCIN 250 MG TABLET. PO SCH (09:33)
[2017-11-22] MEDS: ENOXAPARIN 40 MG/0.4 ML SYRINGE. SQ SCH ×2 (09:33→19:52)
[2017-11-22] MEDS: LACTOBACILLUS RHAMNOSUS GG 1 CAPSULE. PO SCH ×2 (09:35→19:51)
[2017-11-22] MEDS: BUTALB/APAP/CAFEIN 50/325/40MG TABLET. PO PRN ×2 (10:28→19:51)
[2017-11-22 11:00] VITALS: BP 115/67
--- NOTE | 2017-11-22 14:01 | PN ---
DATE: 11/21/2017 SUBJECTIVE: The patient is resting, slightly propped up in bed, in no apparent distress. She is awake, alert. She continued to have headache, although her headache is much improved compared to when she came. The left lower extremity is still erythematous, although much less than yesterday. She is afebrile. PHYSICAL EXAMINATION: GENERAL: When I examined her, she looked somewhat flushed, but no jaundice, cyanosis, or thyromegaly. No jugular venous distention. No limb edema. VITAL SIGNS: Her heart rate was 73, blood pressure was 125/69, temperature was 97.8, respiratory rate was 20, and oxygen saturation was 94% on room air. HEAD, EYES, EARS, NOSE AND THROAT: Showed normocephalic, atraumatic. NECK: Supple. HEART: Showed normal first and second heart sounds with no gallop, rub or murmur. CHEST: Clear to auscultation. No crepitation or rhonchi. ABDOMEN: Distended, soft, nontender. No guarding or rigidity. No organomegaly. All hernial orifice intact. Bowel sounds normal. NEUROLOGIC: She was awake, alert, responding appropriately. Her cranial nerves intact. She has no neck rigidity. Kernig's sign was negative. She moves all extremities without difficulty. Her intake over the last 24 hours was 2200, no output was recorded. LABORATORY DATA: Her lab work this morning showed a white cell count to be 20,900 hemoglobin 11.8, hematocrit 35.8, MCV 85, platelet count of 190,000. Her sedimentation rate was 40 mm per hour. Her C-reactive protein was 230 mg/dL. Serum sodium is up to 134, potassium 3.5, chloride 102, bicarbonate 24, anion gap of 8, BUN 22, creatinine 1.8, estimated GFR was 29 mL per minute. Her glucose was 171, calcium was 7.7. Total bilirubin, AST, ALT, alkaline phosphatase were normal. CK was only 112, total protein was 6.5, albumin 2.7. Her prothrombin time was 9.9, INR of 1, aPTT was 27. Urinalysis was unremarkable. Toxic screen was positive for opiates and barbiturates. Her influenza A and B were negative. Rapid streptococcal test was negative. Her chest x-ray showed no acute cardiopulmonary abnormalities detected. ASSESSMENT: 1. Left lower extremity cellulitis. 2. Hyponatremia. 3. Acute kidney injury. Creatinine has risen from 0.9-1.8. 4. Possible allergic reaction to vancomycin nephrotoxicity. It was discontinued. 5. Questionable community-acquired pneumonia, although the chest x-ray was inconclusive. 6. Headache. PLAN: To continue IV Zyvox, IV Rocephin as well as oral Zithromax. Continue with IV fluid. The patient is already feeling much better. She is definitely afebrile. Her white cell count is probably slightly elevated because of the steroids that were given to her yesterday. BILLY PRIETO MD DR: SOLOMON/skinny JOB#: [id number] / [id number]
[2017-11-22 15:00] VITALS: BP 135/81
[2017-11-22] MEDS ORDERED: MAGNESIUM HYDROXIDE 2,400 MG/30 ML ORAL.SUSP. PO PRN (17:00)
[2017-11-22 19:30] VITALS: BP 138/81
[2017-11-22] MEDS: cefTRIAXone IV Push 1 GM VIAL. IVP SCH (19:51)
[2017-11-22 23:07] VITALS: BP 132/83
[2017-11-23] MEDS: IV NORMAL SALINE 1,000ML 1,000 ML IV SCH ×4 (00:25→18:00)
[2017-11-23] MEDS: oxyCODONE IR 5 MG TABLET PO PRN ×3 (04:33→19:32)
[2017-11-23 05:51] VITALS: BP 133/79
[2017-11-23 06:40] LABS: HEMATOCRIT 35.5 % (36.0-47.0); HEMOGLOBIN 11.8 g/dL (12.0-15.5); RED BLOOD COUNT 4.13 x10^6/uL (3.50-5.40); RED CELL DISTRIBUTION WIDTH 13.7 % (11.5-14.5); WHITE BLOOD COUNT 15.5 x10^3/uL (4.0-11.0)
[2017-11-23 06:51] LABS: CREATININE 1.4 mg/dL (0.6-1.0); GFR 39.2; POTASSIUM 4.2 mmol/L (3.5-5.1)
[2017-11-23] MEDS: MORPHINE SULFATE 4 MG/ML DISP.SYRIN. IV PRN ×4 (07:58→21:06)
[2017-11-23] MEDS: ENOXAPARIN 40 MG/0.4 ML SYRINGE. SQ SCH ×2 (08:51→19:33)
[2017-11-23] MEDS: AZITHROMYCIN 250 MG TABLET. PO SCH (08:51)
[2017-11-23] MEDS: LACTOBACILLUS RHAMNOSUS GG 1 CAPSULE. PO SCH ×2 (08:51→19:31)
--- NOTE | 2017-11-23 10:22 | RAD ---
CLINICAL HISTORY: Pain and swelling LE. Pt on Lovenox. COMPARISON: None available. TECHNIQUE: Ultrasound evaluation of the left leg was performed from the groin to the upper calf with sandhu scale, spectral and color doppler evaluation. FINDINGS: The left common femoral vein, and femoral vein, including the saphenous-femoral junction are normal in appearance. Color and spectral Doppler evaluation demonstrates normal spontaneous flow, augmentation and phasicity. The popliteal vein and visualized calf veins also demonstrate normal compressibility and flow. Of note the peroneal vein is not well visualized. IMPRESSION: No evidence of left lower extremity DVT. Electronically signed by: Andreas Bowles MD (11/23/2017 10:19 AM) [facility]
[2017-11-23 10:36] VITALS: BP 149/90
[2017-11-23 15:00] VITALS: BP 153/88
--- NOTE | 2017-11-23 15:45 | PN ---
DATE: 11/23/2017 SUBJECTIVE: The patient is resting, slightly propped up in bed, no apparent distress. She apparently has severe pain in her left lower extremity and redness has worsened. She is unable to walk on it today. We did actually venous Doppler ultrasound that was negative. She was already on Lovenox for DVT prophylaxis. The venous ultrasound showed that the left common femoral vein including the saphenofemoral junction are normal in appearance. Color and spectral Doppler evaluation demonstrates a normal spontaneous flow augmentation and less ____. The popliteal veins and visualized calf veins also demonstrate normal compressibility and flow. Of note, the peroneal vein is not well visualized and the conclusion is the patient has no evidence of lower extremity DVT. In fact, even her lab work showed improvement. Her white cell count is down to 15,500. Her chemistry showed her creatinine is turning the corner, down to 1.4. The patient is frustrated because of the worsening pain, so I explained that she is already on 3 antibiotics, Zyvox should take care of the cellulitis whether it is caused by staph or streptococcal. Her venous ultrasound was negative. OBJECTIVE: GENERAL: When I examined her this morning, she looked well and was clearly in no apparent respiratory distress. VITAL SIGNS: Her heart rate was 71, blood pressure 133/79, temperature was 98.3, respiratory rate 20, and oxygen saturation was 98% on room air. HEAD, EYES, EARS, NOSE AND THROAT: Showed normocephalic, atraumatic. NECK: Supple. HEART: Showed normal first and second heart sounds with no gallop, rub or murmur. CHEST: Clear to auscultation. No crepitation or rhonchi. ABDOMEN: Distended, soft, nontender. NEUROLOGIC: She is awake, alert, responding appropriately. All cranial nerves intact. She moves extremities without difficulty. Examination of the left lower extremity compared to the right showed that the erythema became somewhat more intense and spread proximally. LABORATORY DATA: Showed a serum sodium of 140, potassium 4.2, chloride 107, bicarbonate 27, anion gap of 6, BUN 17, creatinine 1.4, estimated GFR was 39 mL per minute. Her glucose was 100, calcium was 8. Of note, her C-reactive protein was extremely high at 230. Her white cell count was 15,500, hemoglobin 11.8, hematocrit 35.5, MCV 86 and platelet count of 194,000. Her sedimentation rate was 40 mm per hour. Her blood cultures are so far negative and urine culture showed mixed urogenital javed. ASSESSMENT: 1. Left lower extremity cellulitis. 2. Hyponatremia has improved, in fact her sodium is now 140 mEq per liter. 3. Acute kidney injury, improving. Her creatinine went up to 1.8, today is down to 1.4. 3. Possible allergic reaction to vancomycin with the vancomycin nephrotoxicity that was discontinued. 4. Questionable community-acquired pneumonia and severe headache that has resolved. PLAN: To continue with IV Zyvox and IV Rocephin as well as Zithromax. Continue with IV fluid. Her white cell count is down. Her creatinine is improving, although the pain and erythema is somewhat worsened in her left lower extremity. I offered to transfer the patient to [facility]. She decided to continue with another day as her number is improving and would decide on transfer tomorrow. BILLY PRIETO MD DR: SOLOMON/skinny JOB#: [id number] / [id number]
[2017-11-23] MEDS: cefTRIAXone IV Push 1 GM VIAL. IVP SCH (19:32)
[2017-11-23] MEDS: diphenhydrAMINE HCL 25 MG CAPSULE PO PRN (19:51)
[2017-11-23 20:01] VITALS: BP 135/84
[2017-11-24] MEDS: IV NORMAL SALINE 1,000ML 1,000 ML IV SCH ×3 (01:15→20:18)
[2017-11-24] MEDS: MORPHINE SULFATE 4 MG/ML DISP.SYRIN. IV PRN ×3 (01:19→20:24)
[2017-11-24 05:40] VITALS: BP 145/82
[2017-11-24 06:11] LABS: HEMATOCRIT 32.4 % (36.0-47.0); HEMOGLOBIN 10.8 g/dL (12.0-15.5); RED BLOOD COUNT 3.76 x10^6/uL (3.50-5.40); RED CELL DISTRIBUTION WIDTH 13.5 % (11.5-14.5); WHITE BLOOD COUNT 10.9 x10^3/uL (4.0-11.0)
[2017-11-24 06:18] LABS: ALBUMIN 2.4 g/dL (3.4-5.0); ALBUMIN/GLOBULIN RATIO 0.7 (1.0-1.7); CALCIUM 7.7 mg/dL (8.5-10.1); CREATININE 1.2 mg/dL (0.6-1.0); GFR 46.8; POTASSIUM 3.7 mmol/L (3.5-5.1); TOTAL BILIRUBIN 0.3 mg/dL (0.2-1.0); TOTAL PROTEIN 5.9 g/dL (6.4-8.2)
[2017-11-24] MEDS: diphenhydrAMINE HCL 25 MG CAPSULE PO PRN ×2 (08:22→20:23)
[2017-11-24] MEDS: LACTOBACILLUS RHAMNOSUS GG 1 CAPSULE. PO SCH ×2 (08:22→20:18)
[2017-11-24] MEDS: AZITHROMYCIN 250 MG TABLET. PO SCH (08:22)
[2017-11-24] MEDS: ENOXAPARIN 40 MG/0.4 ML SYRINGE. SQ SCH (08:23)
[2017-11-24 11:19] VITALS: BP 149/91
--- NOTE | 2017-11-24 14:36 | PDOC ---
SUBJECTIVE: I find the patient sitting up in bed and after identifying myself she eagerly uncovers her legs and sits on that side of the bed. She says that today she's been able to walk in her room with some mild discomfort which is a great improvement from yesterday. The redness and swelling has receded down to mid tibia level and she is overall feeling much better. She asks if outpatient antibiotics can continued as she would really like to go home. Her vital signs been stable her labs overall improved and she denies any new complaints. OBJECTIVE: Problems: Problems Medical Problems: (1) Fever Status: Acute Vital Signs: Vital Signs Date Time Temp Pulse Resp B/P (MAP) Pulse Ox O2 Delivery O2 Flow Rate FiO2 11/24/17 11:19 98.3 75 20 149/91 (110) 92 Room Air I & O Intake and Output 11/24/17 07:00 Intake Total 2210 ml Balance 2210 ml Intake Oral 960 ml IV Total 1250 ml # Voids 6 Labs: Laboratory Tests Test 11/23/17 06:20 11/24/17 05:42 White Blood Count 15.5 x10^3/uL (4.0-11.0) 10.9 x10^3/uL (4.0-11.0) Red Blood Count 4.13 x10^6/uL (3.50-5.40) 3.76 x10^6/uL (3.50-5.40) Hemoglobin 11.8 g/dL (12.0-15.5) 10.8 g/dL (12.0-15.5) Hematocrit 35.5 % (36.0-47.0) 32.4 % (36.0-47.0) Mean Corpuscular Volume 86 fL (79-100) 86 fL (79-100) Mean Corpuscular Hemoglobin 29 pg (25-35) 29 pg (25-35) Mean Corpuscular Hemoglobin Concent 33 g/dL (31-37) 33 g/dL (31-37) Red Cell Distribution Width 13.7 % (11.5-14.5) 13.5 % (11.5-14.5) Platelet Count 194 x10^3/uL (140-400) 202 x10^3/uL (140-400) Sodium Level 140 mmol/L (136-145) 140 mmol/L (136-145) Potassium Level 4.2 mmol/L (3.5-5.1) 3.7 mmol/L (3.5-5.1) Chloride Level 107 mmol/L (98-107) 106 mmol/L (98-107) Carbon Dioxide Level 27 mmol/L (21-32) 28 mmol/L (21-32) Anion Gap 6 (6-14) 6 (6-14) Blood Urea Nitrogen 17 mg/dL (7-20) 12 mg/dL (7-20) Creatinine 1.4 mg/dL (0.6-1.0) 1.2 mg/dL (0.6-1.0) Estimated GFR (Cockcroft-Gault) 39.2 46.8 Glucose Level 100 mg/dL (70-99) 81 mg/dL (70-99) Calcium Level 8.0 mg/dL (8.5-10.1) 7.7 mg/dL (8.5-10.1) BUN/Creatinine Ratio 10 (6-20) Total Bilirubin 0.3 mg/dL (0.2-1.0) Aspartate Amino Transf (AST/SGOT) 24 U/L (15-37) Alanine Aminotransferase (ALT/SGPT) 52 U/L (14-59) Alkaline Phosphatase 65 U/L (46-116) Total Protein 5.9 g/dL (6.4-8.2) Albumin 2.4 g/dL (3.4-5.0) Albumin/Globulin Ratio 0.7 (1.0-1.7) PLAN: technical services analyst consulted for probable discharge tomorrow. PICC line CANDELARIO DIETZ DO Nov 24, 2017 14:36
[2017-11-24] MEDS: oxyCODONE IR 5 MG TABLET PO PRN (14:58)
[2017-11-24 15:35] VITALS: BP 160/82
[2017-11-24 20:00] VITALS: BP 158/83
[2017-11-24] MEDS: cefTRIAXone IV Push 1 GM VIAL. IVP SCH (20:19)
[2017-11-24 23:25] VITALS: BP 160/79
[2017-11-25] MEDS: oxyCODONE IR 5 MG TABLET PO PRN (01:30)
[2017-11-25] MEDS: IV NORMAL SALINE 1,000ML 1,000 ML IV SCH ×2 (05:31→09:15)
[2017-11-25] MEDS: MORPHINE SULFATE 4 MG/ML DISP.SYRIN. IV PRN (07:40)
[2017-11-25 07:59] LABS: BASO # 0.1 x10^3/uL (0.0-0.2); BASO % 1 % (0-3); EOS # 0.2 x10^3/uL (0.0-0.7); EOS % 2 % (0-3); HEMATOCRIT 32.4 % (36.0-47.0); HEMOGLOBIN 10.9 g/dL (12.0-15.5); LYMPH # 1.4 x10^3/uL (1.0-4.8); LYMPH % 12 % (24-48); MEAN CORPUSCULAR HEMOGLOBIN 29 pg (25-35); MEAN CORPUSCULAR HGB CONC 34 g/dL (31-37); MEAN CORPUSCULAR VOLUME 86 fL (79-100); MONO % 9 % (0-9); NEUT # 8.7 x10^3uL (1.8-7.7); NEUT % 77 % (31-73); PLATELET COUNT 198 x10^3/uL (140-400); RED BLOOD COUNT 3.79 x10^6/uL (3.50-5.40); RED CELL DISTRIBUTION WIDTH 13.7 % (11.5-14.5); WHITE BLOOD COUNT 11.3 x10^3/uL (4.0-11.0)
[2017-11-25 08:18] LABS: CALCIUM 7.6 mg/dL (8.5-10.1); CREATININE 1.1 mg/dL (0.6-1.0); GFR 51.8; POTASSIUM 3.5 mmol/L (3.5-5.1)
[2017-11-25 08:38] LABS: % BASOS 1 % (0-3); % LYMPHS 14 % (24-48); % METAS 1 % (0-0); % MONOS 8 % (0-10); % SEGS 76 % (35-66); PLT ESTIMATE ADEQUATE (ADEQUATE); POLYCHROMASIA PRESENT
[2017-11-25 08:39] LABS: TOXIC GRANULATION PRESENT; TOXIC VACUOLATION PRESENT
[2017-11-25] MEDS ORDERED: ENOXAPARIN 40 MG/0.4 ML SYRINGE. SQ SCH (09:00)
[2017-11-25] MEDS: AZITHROMYCIN 250 MG TABLET. PO SCH (09:10)
[2017-11-25] MEDS: LACTOBACILLUS RHAMNOSUS GG 1 CAPSULE. PO SCH (09:10)
[2017-11-25] MEDS ORDERED: ONDANSETRON PF 4 MG/2 ML VIAL. IV PRN (10:30)
[2017-11-25 11:43] VITALS: BP 151/84
--- NOTE | 2017-11-25 11:47 | PDOC3 ---
Discharge Summary Visit Information Admitting Diagnosis: left lower extremity cellulitis, hyponatremia, acute kid Final Diagnosis Problems Medical Problems: (1) Fever Status: Acute Brief Hospital Course Allergies Allergies Coded Allergies Type Severity Reaction Last Updated Verified vancomycin Allergy Severe 11/24/17 Yes Vital Signs Vital Signs Date Time Temp Pulse Resp B/P (MAP) Pulse Ox O2 Delivery O2 Flow Rate FiO2 11/25/17 11:43 98.2 62 20 151/84 (106) 92 Room Air Lab Results Laboratory Tests Test 11/24/17 05:42 11/25/17 07:52 White Blood Count 10.9 x10^3/uL (4.0-11.0) 11.3 x10^3/uL (4.0-11.0) Red Blood Count 3.76 x10^6/uL (3.50-5.40) 3.79 x10^6/uL (3.50-5.40) Hemoglobin 10.8 g/dL (12.0-15.5) 10.9 g/dL (12.0-15.5) Hematocrit 32.4 % (36.0-47.0) 32.4 % (36.0-47.0) Mean Corpuscular Volume 86 fL (79-100) 86 fL (79-100) Mean Corpuscular Hemoglobin 29 pg (25-35) 29 pg (25-35) Mean Corpuscular Hemoglobin Concent 33 g/dL (31-37) 34 g/dL (31-37) Red Cell Distribution Width 13.5 % (11.5-14.5) 13.7 % (11.5-14.5) Platelet Count 202 x10^3/uL (140-400) 198 x10^3/uL (140-400) Sodium Level 140 mmol/L (136-145) 138 mmol/L (136-145) Potassium Level 3.7 mmol/L (3.5-5.1) 3.5 mmol/L (3.5-5.1) Chloride Level 106 mmol/L (98-107) 105 mmol/L (98-107) Carbon Dioxide Level 28 mmol/L (21-32) 30 mmol/L (21-32) Anion Gap 6 (6-14) 3 (6-14) Blood Urea Nitrogen 12 mg/dL (7-20) 9 mg/dL (7-20) Creatinine 1.2 mg/dL (0.6-1.0) 1.1 mg/dL (0.6-1.0) Estimated GFR (Cockcroft-Gault) 46.8 51.8 BUN/Creatinine Ratio 10 (6-20) Glucose Level 81 mg/dL (70-99) 107 mg/dL (70-99) Calcium Level 7.7 mg/dL (8.5-10.1) 7.6 mg/dL (8.5-10.1) Total Bilirubin 0.3 mg/dL (0.2-1.0) Aspartate Amino Transf (AST/SGOT) 24 U/L (15-37) Alanine Aminotransferase (ALT/SGPT) 52 U/L (14-59) Alkaline Phosphatase 65 U/L (46-116) Total Protein 5.9 g/dL (6.4-8.2) Albumin 2.4 g/dL (3.4-5.0) Albumin/Globulin Ratio 0.7 (1.0-1.7) Neutrophils (%) (Auto) 77 % (31-73) Lymphocytes (%) (Auto) 12 % (24-48) Monocytes (%) (Auto) 9 % (0-9) Eosinophils (%) (Auto) 2 % (0-3) Basophils (%) (Auto) 1 % (0-3) Neutrophils # (Auto) 8.7 x10^3uL (1.8-7.7) Lymphocytes # (Auto) 1.4 x10^3/uL (1.0-4.8) Monocytes # (Auto) 1.0 x10^3/uL (0.0-1.1) Eosinophils # (Auto) 0.2 x10^3/uL (0.0-0.7) Basophils # (Auto) 0.1 x10^3/uL (0.0-0.2) Segmented Neutrophils % 76 % (35-66) Lymphocytes % 14 % (24-48) Monocytes % 8 % (0-10) Basophils % 1 % (0-3) Metamyelocytes % 1 % (0-0) Toxic Granulation Present Toxic Vacuolation Present Platelet Estimate Adequate (ADEQUATE) Large Platelets Occ Polychromasia Present Brief Hospital Course Ms. Cox is a 52 old [sex] who presented with [ ] One episode of emesis this a.m. "I've been sitting here not moving around" RN said very little Discharge Information Dischare Medications Current Medications Lactated Ringer's 1,000 ml @ 1,000 mls/hr Q1H IV Last administered on at 22:08; Start 11/20/17 at 21:35; Stop 11/20/17 at 22:34; Status DC Morphine Sulfate (Morphine 10mg Syringe) 10 mg 1X ONCE SQ Last administered on 11/20/17at 22:09; Start 11/20/17 at 22:00; Stop 11/20/17 at 22:01; Status DC Ondansetron HCl (Zofran Odt) 8 mg 1X ONCE PO Last administered on 11/20/17at 21: 49; Start 11/20/17 at 22:00; Stop 11/20/17 at 22:01; Status DC Ceftriaxone Sodium 2 gm/ Sodium Chloride 100 ml @ 200 mls/hr 1X ONCE IV ; Start 11/20/17 at 23:30; Stop 11/20/17 at 23:59; Status UNV Morphine Sulfate (Morphine 10mg Syringe) 10 mg 1X ONCE SQ Last administered on 11/21/17at 00:52; Start 11/20/17 at 23:45; Stop 11/20/17 at 23:50; Status DC Ondansetron HCl (Zofran) 4 mg PRN Q4HRS PRN IV NAUSEA/VOMITING Last administered on 11/21/17at 11:29; Start 11/20/17 at 23:45; Stop 11/21/17 at 23:44; Status DC Albuterol/ Ipratropium (Duoneb) 3 ml RTQID NEB Last administered on 11/22/17at 09 :40; Start 11/21/17 at 08:00; Stop 11/23/17 at 09:57; Status DC Ceftriaxone Sodium 1 gm/ Sodium Chloride 50 ml @ 100 mls/hr DAILY IV ; Start at 09:00; Status UNV Azithromycin (Zithromax) 250 mg DAILY PO Last administered on 11/25/17at 09:10; Start 11/21/17 at 09:00 Ceftriaxone Sodium (Rocephin) 2 gm ONCE ONCE IVP Last administered on at 00:00; Start 11/20/17 at 23:45; Stop 11/20/17 at 23:49; Status DC Enoxaparin Sodium (Lovenox 120mg Syringe) 110 mg BID SQ Last administered on 11/21/17at 09:00; Start 11/21/17 at 09:00; Stop 11/21/17 at 10:10; Status DC Vancomycin HCl (Vanco Per Pharmacy) 1 each PRN DAILY PRN MC SEE COMMENTS Last administered on 11/21/17at 03:57; Start 11/21/17 at 00:00; Stop 11/21/17 at 09:39; Status DC Vancomycin HCl 1 gm/Sodium Chloride 250 ml @ 250 mls/hr 1X ONCE IV ; Start 11/21/17 at 00:00; Stop 11/21/17 at 00:59; Status UNV Ceftriaxone Sodium (Rocephin) 1 gm Q24H IVP Last administered on 11/24/17at 20: 19; Start 11/21/17 at 21:00 Vancomycin HCl 2 gm/Sodium Chloride 500 ml @ 250 mls/hr 1X ONCE IV Last administered on 11/21/17at 00:50; Start 11/21/17 at 00:00; Stop 11/21/17 at 01:59; Status DC Sodium Chloride 500 ml @ As Directed STK-MED ONCE .ROUTE ; Start 11/21/17 at 00: 32; Stop 11/21/17 at 00:33; Status DC Vancomycin HCl (Vancomycin) 1 gm STK-MED ONCE .ROUTE ; Start 11/21/17 at 00:32; Stop 11/21/17 at 00:33; Status DC Sodium Chloride 500 ml @ As Directed STK-MED ONCE .ROUTE ; Start 11/21/17 at 00: 45; Stop 11/21/17 at 00:46; Status DC Ondansetron HCl (Zofran) 8 mg 1X ONCE IV Last administered on 11/21/17at 00:57; Start 11/21/17 at 01:00; Stop 11/21/17 at 01:29; Status DC Vancomycin HCl 1.75 gm/Sodium Chloride 500 ml @ 250 mls/hr Q12H IV ; Start 11/21 at 13:00; Stop 11/21/17 at 13:00; Status DC Vancomycin HCl (Vancomycin Trough Level) 1 each 1X ONCE MC ; Start 11/22/17 at 12:30; Stop 11/22/17 at 12:30; Status DC Citalopram Hydrobromide (CeleXA) 20 mg DAILY PO ; Start 11/21/17 at 09:00; Stop 11/21/17 at 10:10; Status DC Non-Formulary Medication (Butalbital/ Acetaminophen (Acetaminophn-Butalbital 325 -50)) 1 each Q4-6HRS PRN PO HEADACHE; Start 11/21/17 at 05:15; Stop 11/21/17 at 07 :00; Status DC Albuterol/ Ipratropium (Duoneb) 3 ml STK-MED ONCE .ROUTE ; Start 11/21/17 at 05: 48; Stop 11/21/17 at 05:49; Status DC Acetaminophen/ Butalbital/ Caffeine (Fioricet) 1 tab PRN Q4HRS PRN PO HEADACHE Last administered on 11/22/17at 19:51; Start 11/21/17 at 07:15 Linezolid 300 ml @ 300 mls/hr Q12HR IV Last administered on 11/25/17at 09:11; Start 11/21/17 at 10:00 Sodium Chloride 1,000 ml @ 1,000 mls/hr 1X ONCE IV Last administered on at 09:00; Start 11/21/17 at 09:00; Stop 11/21/17 at 09:59; Status DC Sodium Chloride 1,000 ml @ 125 mls/hr Q8H IV Last administered on 11/25/17at 05 :31; Start 11/21/17 at 10:00 Oxycodone HCl (Roxicodone) 5 mg PRN Q4HRS PRN PO MODERATE PAIN Last administered on 11/25/17at 01:30; Start 11/21/17 at 09:00 Enoxaparin Sodium (Lovenox 40mg Syringe) 40 mg Q12H SQ Last administered on 01/01at 08:23; Start 11/21/17 at 21:00; Stop 11/24/17 at 10:03; Status DC Lactobacillus Rhamnosus (Culturelle) 1 cap BID PO Last administered on at 09:10; Start 11/21/17 at 21:00 Methylprednisolone Sodium Succinate (SOLU-Medrol 125MG VIAL) 125 mg 1X ONCE IV Last administered on 11/21/17 13:30; Start 11/21/17 at 13:30; Stop 11/21/17 at 13:31; Status DC Promethazine HCl (Phenergan) 50 mg 1X ONCE PO Last administered on 11/21/17 13 :30; Start 11/21/17 at 13:30; Stop 11/21/17 at 13:31; Status DC Magnesium Hydroxide (Milk Of Magnesia) 2,400 mg PRN DAILY PRN PO CONSTIPATION Last administered on 11/22/17 19:51; Start 11/22/17 at 17:00 Morphine Sulfate (Morphine 4mg Syringe) 4 mg PRN Q4HRS PRN IV SEVERE PAIN Last administered on 11/25/17at 07:40; Start 11/23/17 at 07:30 Diphenhydramine HCl (Benadryl) 50 mg PRN Q6HRS PRN PO ITCHING Last administered on 11/24/17at 20:23; Start 11/23/17 at 19:45 Enoxaparin Sodium (Lovenox 40mg Syringe) 40 mg DAILY SQ Last administered on 02/01at 09:10; Start 11/25/17 at 09:00 Ondansetron HCl (Zofran) 4 mg PRN Q6HRS PRN IV NAUSEA/VOMITING Last administered on 11/25/17at 10:42; Start 11/25/17 at 10:30 Active Scripts Active Reported Acetaminophn-Butalbital 325-50 (Butalbital/Acetaminophen) 1 Each Tablet 1 Each PO Q4-6HRS PRN Citalopram Hbr (Citalopram Hydrobromide) 20 Mg Tablet 20 Mg PO DAILY CANDELARIO DIETZ DO Nov 25, 2017 11:47
[2017-11-25 15:45] VITALS: BP 157/84
== END 2017-11-25 16:40 | disposition home health service (06) | DRG 683 ==
LOC: ER 21:07 → UNDOADMIN 23:00 → 1 SOUTH 23:00
PROVIDERS: ADMIT Internal Medicine; ATTEND Internal Medicine
DX: N17.9 Acute kidney failure, unspecified (principal); E87.1 Hypo-osmolality and hyponatremia; L03.116 Cellulitis of left lower limb; G89.29 Other chronic pain; M54.9 Dorsalgia, unspecified; M19.90 Unspecified osteoarthritis, unspecified site; D72.829 Elevated white blood cell count, unspecified; R51 Headache; Z88.8 Allergy status to other drugs, medicaments and biological substances; Z90.710 Acquired absence of both cervix and uterus; Z79.899 Other long term (current) drug therapy
CPT/HCPCS: 36415; 36569; 70450; 71046; 80048; 80053; 80076; 80307; 81001; 82550; 82553; 83605; 83690; 83735; 83880; 84443; 84484; 85007; 85025; 85027; 85610; 85651; 85730; 86140; 87040; 87070; 87086; 87804; 87880; 93971; 94640; 96372; 96374; 96375; G0238; J0456; J0696; J1650; J2020; J2270; J2405; J2930; J3370; J7040; J7120; J7620; Q0162; Q0163; Q0169; 99285-25; G0479; J7030

== ENCOUNTER 2018-09-05 10:25 | Emergency (ER) | payer BC ==
[~2018-09-05] VITALS: Ht 175.3 cm; Wt 109.3 kg
[~2018-09-05 10:25] MED LIST changes: +HYDR-2155 PO; -HYDR-2758 PO
[2018-09-05] MEDS ORDERED: IOHEXOL 300 MG/ML 75 ML VIAL. IV ONE (11:15)
--- NOTE | 2018-09-05 11:17 | PHYS DOC ---
Past History Past Medical History: Anxiety, Arthritis, Asthma, Depression, Migraines, Other Past Surgical History: Hysterectomy, Other Alcohol Use: Occasionally Drug Use: None Adult General Chief Complaint Chief Complaint: FLANK PAIN [facility] HPI 53-year-old female presents with right upper quadrant abdominal pain and flank pain. The patient was sent here by her PCP. This pain started yesterday while the patient was at work sitting at a desk. She can't think of anything that started the pain. It first seem like a bad cramp but migrated over to her right flank and now is mostly her right upper quadrant. Worse with deep breathing. The pain is a deep cramping sensation that is moderate in intensity. It feels a little better if she holds light pressure against it with her hand. No history of kidney stones. She denies increased urinary frequency or dysuria. She denies history of pancreatitis. She denies daily alcohol consumption. The patient still has her appendix and gallbladder. She has a history of hysterectomy and C- sections. Review of Systems Review of Systems Constitutional: Denies fever or chills [] Eyes: Denies change in visual acuity, redness, or eye pain [] HENT: Denies nasal congestion or sore throat [] Respiratory: Denies cough or shortness of breath [] Cardiovascular: No additional information not addressed in HPI [] GI: RUQ abdominal pain. Denies nausea, vomiting, bloody stools or diarrhea [] : Denies dysuria or hematuria [] Musculoskeletal: Denies back pain or joint pain [] Integument: Denies rash or skin lesions [] Neurologic: Denies headache, focal weakness or sensory changes [] Endocrine: Denies polyuria or polydipsia [] All other systems were reviewed and found to be within normal limits, except as documented in this note. Allergies Allergies Allergies Coded Allergies Type Severity Reaction Last Updated Verified vancomycin Allergy Severe 11/24/17 Yes Physical Exam Physical Exam Constitutional: Well developed, obese, well nourished, no acute distress, non- toxic appearance. [] HENT: Normocephalic, atraumatic, bilateral external ears normal, oropharynx mo ist, no oral exudates, nose normal. [] Eyes: PERRLA, EOMI, conjunctiva normal, no discharge. [] Neck: Normal range of motion, no tenderness, supple, no stridor. [] Cardiovascular:Heart rate regular rhythm, no murmur [] Lungs & Thorax: Bilateral breath sounds clear to auscultation [] Abdomen: Bowel sounds normal, soft, epigastric tenderness, no masses, no pulsatile masses. [] Skin: Warm, dry, no erythema, no rash. [] Back: No tenderness, no CVA tenderness. [] Extremities: No tenderness, no cyanosis, no clubbing, ROM intact, no edema. [] Neurologic: Alert and oriented X 3, normal motor function, normal sensory function, no focal deficits noted. [] Psychologic: Affect normal, judgement normal, mood normal. [] Current Patient Data Vital Signs Vital Signs Date Time Temp Pulse Resp B/P (MAP) Pulse Ox O2 Delivery O2 Flow Rate FiO2 09/05/18 10:32 98.5 70 20 96 Room Air EKG EKG [] Radiology/Procedures Radiology/Procedures [] Impressions: PQRS Compliance statement: One or more of the following individualized dose reduction techniques were utilized for this examination: 1. Automated exposure control. 2. Adjustment of the mA and/or kV according to patient size. 3. Use of iterative reconstruction technique. Indication:Right upper quadrant pain. Rule out kidney stone. TECHNIQUE: CT abdomen and pelvis without and with IV contrast with multiplanar reformats. COMPARISON: 02/28/2015 FINDINGS: Heart is normal in size. No pericardial or pleural effusion. Clear lung bases. Liver, spleen, gallbladder, pancreas, adrenals within normal limits. No nephrolithiasis or hydronephrosis. No suspicious renal lesion. No free pelvic fluid or ascites. No enlarged retroperitoneal or pelvic adenopathy. No bowel obstruction. Normal appendix. No pneumoperitoneum. Urinary bladder is within normal limits. No suspicious bony lesion. Recommendation in the lower lumbar spine. IMPRESSION: 1. No nephrolithiasis or hydronephrosis. 2. no bowel obstruction. Electronically signed by: Saturnino Vaughan DO (09/05/2018 11:41 AM) [facility] DICTATED AND SIGNED BY: SATURNINO VAUGHAN DO DATE: 09/05/18 1141 CC: LEO BUSTILLO DO; GINA WARD PAC ~ Course & Med Decision Making Course & Med Decision Making Pertinent Labs and Imaging studies reviewed. (See chart for details) The patient's CT scan was unremarkable. Her labs are remarkable only for a slightly elevated white count. The patient's urine is significant for moderate blood, but no infection. The patient has continued to have pain. I have him her 2 mg of morphine. She tells me the pain is the same level as when she came in and in the same location. My best there at this point is that she has a non- calcium kidney stone or this is a gallbladder issue. The liver enzymes are normal, so does not appear to be in acute cholecystitis. I've advised the patient go home on oral pain medication and drink lots of fluids. If this does not resolve in a few days she should follow-up to consider urology consult. If she develops a fever or symptoms worsen, she will come back to emergency room. She is stable for discharge at this time. [] Dragon Disclaimer Dragon Disclaimer This electronic medical record was generated, in whole or in part, using a voice recognition dictation system. Departure Departure: Impression: Primary Impression: Kidney stone Disposition: 01 HOME, SELF-CARE Condition: STABLE Referrals: GINA WARD PAC (PCP) Patient Instructions: Kidney Stones, [id number] Scripts Hydrocodone Bit/Acetaminophen (NORCO 5-325 TABLET) 1 Each Tablet 1 TAB PO PRN Q6HRS PRN for PAIN, #14 TAB 0 Refills Prov: LEO BUSTILLO DO 09/05/18 LEO BUSTILLO DO Sep 05, 2018 11:17
[2018-09-05 11:27] LABS: POTASSIUM ISTAT 4.2 mmol/L (3.5-5.0)
[2018-09-05 11:28] LABS: HEMOGLOBIN ISTAT 13.3 gm/dL
[2018-09-05 11:36] LABS: RED BLOOD COUNT 4.51 x10^6/uL (3.50-5.40); WHITE BLOOD COUNT 14.3 x10^3/uL (4.0-11.0)
[2018-09-05 11:37] LABS: HEMATOCRIT 39.8 % (36.0-47.0); HEMOGLOBIN 12.7 g/dL (12.0-15.5); MEAN CORPUSCULAR HEMOGLOBIN 28 pg (25-35); MEAN CORPUSCULAR HGB CONC 32 g/dL (31-37); MEAN CORPUSCULAR VOLUME 88 fL (79-100); PLATELET COUNT 259 x10^3/uL (140-400); RED CELL DISTRIBUTION WIDTH 12.7 % (11.5-14.5)
--- NOTE | 2018-09-05 11:44 | RAD ---
PQRS Compliance statement: One or more of the following individualized dose reduction techniques were utilized for this examination: 1. Automated exposure control. 2. Adjustment of the mA and/or kV according to patient size. 3. Use of iterative reconstruction technique. Indication:Right upper quadrant pain. Rule out kidney stone. TECHNIQUE: CT abdomen and pelvis without and with IV contrast with multiplanar reformats. COMPARISON: 02/28/2015 FINDINGS: Heart is normal in size. No pericardial or pleural effusion. Clear lung bases. Liver, spleen, gallbladder, pancreas, adrenals within normal limits. No nephrolithiasis or hydronephrosis. No suspicious renal lesion. No free pelvic fluid or ascites. No enlarged retroperitoneal or pelvic adenopathy. No bowel obstruction. Normal appendix. No pneumoperitoneum. Urinary bladder is within normal limits. No suspicious bony lesion. Recommendation in the lower lumbar spine. IMPRESSION: 1. No nephrolithiasis or hydronephrosis. 2. no bowel obstruction. Electronically signed by: Saturnino Toribio DO (09/05/2018 11:41 AM) [facility]
[2018-09-05 11:50] LABS: BILIRUBIN,URINE NEG (NEG); CLARITY,URINE CLEAR; GLUCOSE,URINE NEG (NEG); NITRITE,URINE NEG (NEG); UROBILINOGEN,URINE 0.2 mg/dL (0.2 mg/dL)
[2018-09-05 11:51] LABS: COLOR,URINE YELLOW
[2018-09-05] MEDS ORDERED: KETOROLAC 30 MG/ML VIAL. ONE (11:53)
[2018-09-05] MEDS ORDERED: KETOROLAC 30 MG/ML VIAL. IV ONE (12:00)
[2018-09-05 12:01] LABS: % EOS 2 % (0-5); % LYMPHS 11 % (24-48); % MONOS 3 % (0-10); % SEGS 84 % (35-66)
[2018-09-05 12:02] LABS: PLT ESTIMATE ADEQUATE (ADEQUATE)
[2018-09-05 13:33] LABS: ALBUMIN 4.2 g/dL (3.4-5.0); TOTAL BILIRUBIN 0.6 mg/dL (0.2-1.0); TOTAL PROTEIN 7.6 g/dL (6.4-8.2)
[2018-09-05 13:38] LABS: DIRECT BILIRUBIN 0.1 mg/dL (0.0-0.2)
[2018-09-05] MEDS ORDERED: MORPHINE SULFATE 2 MG/ML DISP.SYRIN. ONE (13:43)
[2018-09-05] MEDS ORDERED: MORPHINE SULFATE 2 MG/ML DISP.SYRIN. IV ONE (13:45)
[2018-09-05] MEDS ORDERED: HYDR-3165 PO (13:58)
[2018-09-05 14:00] VITALS: BP 127/77
[2018-09-05] MEDS ORDERED: HYDROcodone/APAP 5/325MG 1 TAB TABLET PO ONE (14:15)
== END 2018-09-05 14:45 | disposition home or self-care (01) ==
LOC: ER 10:25
DX: N20.0 Calculus of kidney (principal); F41.9 Anxiety disorder, unspecified; M19.90 Unspecified osteoarthritis, unspecified site; J45.909 Unspecified asthma, uncomplicated; F32.9 Major depressive disorder, single episode, unspecified; G43.909 Migraine, unspecified, not intractable, without status migrainosus; Z90.710 Acquired absence of both cervix and uterus; Z88.1 Allergy status to other antibiotic agents
CPT/HCPCS: 36415; 74178; 80047; 80076; 81003; 83690; 84484; 85007; 85025; 96374; 96375; 99285; J1885; J2270

== ENCOUNTER 2018-09-07 15:48 | Inpatient (IN) | payer BC ==
[~2018-09-07] VITALS: Ht 163.8 cm; Wt 117.1 kg
[~2018-09-07 15:48] MED LIST changes: +HYDR-3165 PO
[2018-09-07] MEDS ORDERED: IV NORMAL SALINE 1,000ML 1,000 ML IV SCH (16:20)
[2018-09-07] MEDS ORDERED: KETOROLAC 30 MG/ML VIAL. IV ONE (16:30)
[2018-09-07] MEDS ORDERED: ONDANSETRON PF 4 MG/2 ML VIAL. IV ONE (16:30)
--- NOTE | 2018-09-07 16:52 | PHYS DOC ---
Past History Past Medical History: Anxiety, Arthritis, Asthma, Depression, Migraines, Other Past Surgical History: Hysterectomy, Other Alcohol Use: Occasionally Drug Use: None Adult General Chief Complaint Chief Complaint: FLANK PAIN HPI HPI Patient is a 53 year old female who presents with complaint of right upper quadrant and flank pain. Patient was seen in the emergency department 2 days ago for similar symptoms. Patient underwent blood work and CT imaging which did not show a clearcut source of the patient's pain. Notes that since her visit, she has had continued pain that seems to be gradually worsening. Has felt nauseous but has had no vomiting. Has been running a low-grade temperature at home. Took hydrocodone as prescribed at her previous visit but states that it only helps temporarily symptoms are worsening again. Denies any change in bowel habits. No dysuria. Review of Systems Review of Systems Constitutional: Denies fever or chills [] Eyes: Denies change in visual acuity, redness, or eye pain [] HENT: Denies nasal congestion or sore throat [] Respiratory: Denies cough or shortness of breath [] Cardiovascular: Denies chest pain or edema[] GI: Nausea, abdominal pain, denies vomiting bloody stools or diarrhea [] : Denies dysuria or hematuria [] Musculoskeletal: Right flank pain, denies joint pain [] Integument: Denies rash or skin lesions [] Neurologic: Denies headache, focal weakness or sensory changes [] All other systems were reviewed and found to be within normal limits, except as documented in this note. Current Medications Current Medications Current Medications Medications (Trade) Dose Ordered Sig/Ojrge Start Time Stop Time Status Last Admin Dose Admin Fentanyl Citrate (Fentanyl 2ml Vial) 50 mcg PRN Q15MIN PRN 09/07/18 16:30 09/08/18 16:29 09/07/18 16:38 50 MCG Ketorolac Tromethamine (Toradol 30mg Vial) 30 mg 1X ONCE 09/07/18 16:30 09/07/18 16:31 DC 09/07/18 16:39 30 MG Ondansetron HCl (Zofran) 4 mg 1X ONCE 09/07/18 16:30 09/07/18 16:31 DC 09/07/18 16:39 4 MG Sodium Chloride 1,000 ml @ 1,000 mls/hr Q1H 09/07/18 16:20 09/07/18 17:19 09/07/18 16:38 1,000 MLS/HR Allergies Allergies Allergies Coded Allergies Type Severity Reaction Last Updated Verified vancomycin Allergy Severe 11/24/17 Yes Physical Exam Physical Exam Constitutional: Alert, low-grade temperature elevation noted, appears in moderate discomfort. [] HENT: Normocephalic, atraumatic, bilateral external ears normal, oropharynx moist, no oral exudates, nose normal. [] Eyes: PERRLA, EOMI, conjunctiva normal, no discharge. [] Neck: Normal range of motion, no tenderness, supple, no stridor. [] Cardiovascular:Heart rate regular rhythm, no murmur [] Lungs & Thorax: Bilateral breath sounds clear to auscultation [] Abdomen: Bowel sounds normal, soft, right upper quadrant tenderness to p alpation, positive [place] sign, no masses, no pulsatile masses. [] Skin: Warm, dry, no erythema, no rash. [] Back: No tenderness, no CVA tenderness. [] Extremities: No tenderness, no cyanosis, no clubbing, ROM intact, no edema. [] Neurologic: Alert and oriented X 3, normal motor function, normal sensory function, no focal deficits noted. [] Current Patient Data Vital Signs Vital Signs Date Time Temp Pulse Resp B/P (MAP) Pulse Ox O2 Delivery O2 Flow Rate FiO2 09/07/18 16:38 18 98 Room Air 09/07/18 16:15 99.8 60 Lab Results Laboratory Tests Test 09/07/18 16:35 09/07/18 16:45 White Blood Count 12.5 x10^3/uL Red Blood Count 4.40 x10^6/uL Hemoglobin 12.7 g/dL Hematocrit 37.9 % Mean Corpuscular Volume 86 fL Mean Corpuscular Hemoglobin 29 pg Mean Corpuscular Hemoglobin Concent 33 g/dL Red Cell Distribution Width 12.8 % Platelet Count 300 x10^3/uL Neutrophils (%) (Auto) 76 % Lymphocytes (%) (Auto) 13 % Monocytes (%) (Auto) 8 % Eosinophils (%) (Auto) 2 % Basophils (%) (Auto) 1 % Neutrophils # (Auto) 9.5 x10^3uL Lymphocytes # (Auto) 1.6 x10^3/uL Monocytes # (Auto) 1.0 x10^3/uL Eosinophils # (Auto) 0.2 x10^3/uL Basophils # (Auto) 0.2 x10^3/uL Sodium Level 131 mmol/L Potassium Level 4.1 mmol/L Chloride Level 101 mmol/L Carbon Dioxide Level 27 mmol/L Anion Gap 3 Blood Urea Nitrogen 17 mg/dL Creatinine 1.0 mg/dL Estimated GFR (Cockcroft-Gault) 57.6 BUN/Creatinine Ratio 17 Glucose Level 82 mg/dL Calcium Level 8.8 mg/dL Total Bilirubin 0.3 mg/dL Aspartate Amino Transf (AST/SGOT) 63 U/L Alanine Aminotransferase (ALT/SGPT) 73 U/L Alkaline Phosphatase 111 U/L Total Protein 7.6 g/dL Albumin 3.3 g/dL Albumin/Globulin Ratio 0.8 Lipase 102 U/L Urine Collection Type Unknown Urine Color Yellow Urine Clarity Cloudy Urine pH 5.5 Urine Specific [place] 1.015 Urine Protein Neg Urine Glucose (UA) Neg mg/dL Urine Ketones (Stick) Neg mg/dL Urine Blood Small Urine Nitrite Neg Urine Bilirubin Neg Urine Urobilinogen Dipstick 1 mg/dL Urine Leukocyte Esterase Small Urine RBC 1-2 /HPF Urine WBC 5-10 /HPF Urine Squamous Epithelial Cells Few /LPF Urine Bacteria Mod /HPF Urine Mucus Slight /LPF Current Medications Medications (Trade) Dose Ordered Sig/Jorge Route PRN Reason Start Time Stop Time Status Last Admin Dose Admin Fentanyl Citrate (Fentanyl 2ml Vial) 50 mcg PRN Q15MIN PRN IV PAIN GREATER THAN 3/10 09/07/18 16:30 09/08/18 16:29 09/07/18 16:38 Sodium Chloride 1,000 ml @ 1,000 mls/hr Q1H IV 09/07/18 16:20 09/07/18 17:20 DC 09/07/18 16:38 Ondansetron HCl (Zofran) 4 mg 1X ONCE IV 09/07/18 16:30 09/07/18 16:31 DC 09/07/18 16:39 Ketorolac Tromethamine (Toradol 30mg Vial) 30 mg 1X ONCE IV 09/07/18 16:30 09/07/18 16:31 DC 09/07/18 16:39 Ceftriaxone Sodium 1 gm/ Sodium Chloride 50 ml @ 100 mls/hr 1X ONCE IV 09/07/18 17:45 09/07/18 18:14 EKG EKG Not performed[] Radiology/Procedures Radiology/Procedures [place] [id number] IMAGING REPORT Signed PATIENT: ROBER LOWE ACCOUNT: [id number] : 1965 LOCATION: ER AGE: 53 SEX: F EXAM STATUS: REG ER ORD. PHYSICIAN: JOSE MADSEN MD REASON: RUQ pain, right flank pain, neg CT 2 days ago PROCEDURE: ABDOMEN COMPLETE Complete abdomen ultrasound HISTORY: Right upper quadrant abdominal pain. Right flank pain. FINDINGS: Most of the pancreas, aorta and IVC are not visualized due to bowel gas shadowing. Visualized segments of these vessels and of the head of the pancreas are grossly normal. No liver mass documented. There may be slightly increased liver echogenicity relative to renal parenchyma which could indicate liver steatosis indicated by the correctional guard although on the saved images this is less apparent. No gallstones or inflammatory change of the gallbladder. No biliary ductal dilation common bile duct diameter is 4 mm. There may be mild layering dependent gallbladder sludge. Right renal length 10.1 cm. Left renal length 11.1 cm. Rib and bowel gas shadowing limits visualization of the right renal lower pole and left renal upper and lower poles. No renal mass or hydronephrosis documented. Spleen length 11.9 cm. IMPRESSION: Gallbladder sludge. No gallstones or gallbladder inflammation evident. No biliary ductal dilation. Electronically signed by: Pamela Bazan MD (09/07/2018 5:31 PM) [facility] DICTATED AND SIGNED BY: PAMELA BAZAN MD DATE: 09/07/18 1733 CC: JOSE MADSEN MD; GINA WARD PAC ~ [] Course & Med Decision Making Course & Med Decision Making Pertinent Labs and Imaging studies reviewed. (See chart for details) Patient given Toradol, fentanyl, and Zofran as well as IV fluids. Ultrasound imaging shows no clear-cut etiology for patient's symptoms. Urinalysis does show evidence of leukocytes, bacteria, and positive leukoesterase. Given patient's right flank and upper quadrant symptoms, acute pyelonephritis cannot be ruled out at this time. Patient states that her pain has slightly improved but is still causing her considerable discomfort. Given continued efforts at controlling pain with no significant improvement, the patient will need admission to the hospital for further treatment of pain and urinary tract infection. I spoke with Dr. Garza who will accept care of patient in hospital. Dragon Disclaimer Dragon Disclaimer This electronic medical record was generated, in whole or in part, using a voice recognition dictation system. Departure Departure: Impression: Primary Impression: Acute pyelonephritis Additional Impression: Intractable pain Disposition: ADMITTED INPATIENT Admitting Physician: Jordan Garza Condition: GUARDED Referrals: GINA WARD PAC (PCP) Problem Qualifiers JOSE MADSEN MD Sep 07, 2018 16:52
[2018-09-07 16:56] LABS: BASO # 0.2 x10^3/uL (0.0-0.2); BASO % 1 % (0-3); EOS # 0.2 x10^3/uL (0.0-0.7); EOS % 2 % (0-3); HEMATOCRIT 37.9 % (36.0-47.0); HEMOGLOBIN 12.7 g/dL (12.0-15.5); LYMPH # 1.6 x10^3/uL (1.0-4.8); LYMPH % 13 % (24-48); MEAN CORPUSCULAR HEMOGLOBIN 29 pg (25-35); MEAN CORPUSCULAR HGB CONC 33 g/dL (31-37); MEAN CORPUSCULAR VOLUME 86 fL (79-100); MONO % 8 % (0-9); NEUT # 9.5 x10^3uL (1.8-7.7); NEUT % 76 % (31-73); PLATELET COUNT 300 x10^3/uL (140-400); RED CELL DISTRIBUTION WIDTH 12.8 % (11.5-14.5); WHITE BLOOD COUNT 12.5 x10^3/uL (4.0-11.0)
[2018-09-07 17:05] LABS: BACTERIA,URINE MOD /HPF (0-FEW); BILIRUBIN,URINE NEG (NEG); CLARITY,URINE CLOUDY; COLOR,URINE YELLOW; GLUCOSE,URINE NEG (NEG); NITRITE,URINE NEG (NEG); SQUAMOUS EPITHELIAL CELL,UR FEW /LPF; UROBILINOGEN,URINE 1 mg/dL (0.2 mg/dL)
[2018-09-07 17:09] LABS: ALBUMIN 3.3 g/dL (3.4-5.0); ALBUMIN/GLOBULIN RATIO 0.8 (1.0-1.7); CALCIUM 8.8 mg/dL (8.5-10.1); GFR 57.6; POTASSIUM 4.1 mmol/L (3.5-5.1); TOTAL BILIRUBIN 0.3 mg/dL (0.2-1.0); TOTAL PROTEIN 7.6 g/dL (6.4-8.2)
--- NOTE | 2018-09-07 17:34 | RAD ---
Complete abdomen ultrasound HISTORY: Right upper quadrant abdominal pain. Right flank pain. FINDINGS: Most of the pancreas, aorta and IVC are not visualized due to bowel gas shadowing. Visualized segments of these vessels and of the head of the pancreas are grossly normal. No liver mass documented. There may be slightly increased liver echogenicity relative to renal parenchyma which could indicate liver steatosis indicated by the soap tender although on the saved images this is less apparent. No gallstones or inflammatory change of the gallbladder. No biliary ductal dilation common bile duct diameter is 4 mm. There may be mild layering dependent gallbladder sludge. Right renal length 10.1 cm. Left renal length 11.1 cm. Rib and bowel gas shadowing limits visualization of the right renal lower pole and left renal upper and lower poles. No renal mass or hydronephrosis documented. Spleen length 11.9 cm. IMPRESSION: Gallbladder sludge. No gallstones or gallbladder inflammation evident. No biliary ductal dilation. Electronically signed by: Sb Bazan MD (09/07/2018 5:31 PM) [facility]
[2018-09-07] MEDS ORDERED: ONDANSETRON PF 4 MG/2 ML VIAL. IV PRN (17:45)
[2018-09-07] MEDS ORDERED: IV NORMAL SALINE 50ML 50 ML ONE (17:48)
[2018-09-07] MEDS ORDERED: cefTRIAXone SODIUM 1 GM VIAL ONE (17:48)
[2018-09-07 18:48] VITALS: BP 130/82
[2018-09-07] MEDS: IV NORMAL SALINE 1,000ML 1,000 ML IV SCH (19:32)
[2018-09-07] MEDS ORDERED: ESCITALOPRAM OX20 MG PO (20:34)
[2018-09-07] MEDS ORDERED: MONT10TA80 PO (20:34)
[2018-09-07] MEDS ORDERED: FLUT1AER IH (20:34)
[2018-09-07] MEDS ORDERED: ALBU2.5V8 INH (20:34)
[2018-09-07] MEDS ORDERED: PROP60CA8 PO (20:34)
[2018-09-07 22:35] VITALS: BP 108/68
[2018-09-08] MEDS: IV NORMAL SALINE 1,000ML 1,000 ML IV SCH ×3 (03:03→20:31)
[2018-09-08] MEDS: ACETAMINOPHEN 325 MG TABLET PO PRN ×3 (03:34→23:05)
[2018-09-08 05:26] VITALS: BP 122/77
[2018-09-08 06:09] LABS: CALCIUM 8.1 mg/dL (8.5-10.1); GFR 57.6; POTASSIUM 4.1 mmol/L (3.5-5.1)
[2018-09-08 06:28] LABS: BASO % 0 % (0-3); EOS # 0.2 x10^3/uL (0.0-0.7); EOS % 2 % (0-3); HEMATOCRIT 34.1 % (36.0-47.0); HEMOGLOBIN 11.4 g/dL (12.0-15.5); LYMPH # 1.4 x10^3/uL (1.0-4.8); LYMPH % 14 % (24-48); MEAN CORPUSCULAR HEMOGLOBIN 29 pg (25-35); MEAN CORPUSCULAR HGB CONC 33 g/dL (31-37); MEAN CORPUSCULAR VOLUME 87 fL (79-100); MONO # 0.9 x10^3/uL (0.0-1.1); MONO % 9 % (0-9); NEUT # 7.3 x10^3uL (1.8-7.7); NEUT % 74 % (31-73); PLATELET COUNT 262 x10^3/uL (140-400); RED BLOOD COUNT 3.93 x10^6/uL (3.50-5.40); RED CELL DISTRIBUTION WIDTH 12.8 % (11.5-14.5); WHITE BLOOD COUNT 9.8 x10^3/uL (4.0-11.0)
[2018-09-08] MEDS ORDERED: ALBUTEROL SULFATE 2.5 MG/3 ML NEBU. INH PRN (07:00)
[2018-09-08] MEDS: PROPRANOLOL ER 60 MG CAP.SA.24H. PO SCH (08:20)
[2018-09-08] MEDS: CITALOPRAM 20 MG TABLET. PO SCH (08:21)
[2018-09-08] MEDS ORDERED: NON FORMULARY ITEM (Fluticasone/Vilanterol (Breo Ellipta 100-25 Mcg Inh) 1 PUFF) IH SCH (09:00)
[2018-09-08 11:10] VITALS: BP 136/75
[2018-09-08] MEDS: BUDESONIDE 0.5 MG/2 ML NEBU NEB SCH ×2 (11:16→20:05)
[2018-09-08] MEDS: ALBUTEROL SULFATE 2.5 MG/3 ML NEBU. NEB SCH ×3 (11:16→23:08)
--- NOTE | 2018-09-08 17:43 | HP ---
ADMIT DATE: 09/07/2018 HISTORY OF PRESENT ILLNESS: The patient is a 53-year-old female patient who came to the Emergency Room complaining of right flank pain. The patient stated that pain started last Friday, mostly in the right upper quadrant, described as constant pain, aggravated by coughing, moving. She was actually seen in the Emergency Room 2 days ago, had had lab work and CT imaging did not show any clear-cut source of the patient's pain; and since her visit, she continued to have pain that seems to be gradually worsening. She felt nauseous, but did not vomit. She denied any dysuria, frequency or hematuria. Does have a low-grade fever at home. She took hydrocodone as described at her previous visit, but states that it only helps temporarily. Her symptoms further worsened again. She denied any change in the bowel habit. She was evaluated again in the Emergency Room. Her white cell count was slightly elevated at 12,500. Her chemistry showed slightly elevated liver enzymes and she did have abdominal ultrasound, which showed that there is no liver mass documented. There may be slightly increased liver echogenicity relative to renal parenchyma, which could indicate liver steatosis indicated by machine attendant although on the saved images this is less apparent. No gallstones or inflammatory changes of the gallbladder. No biliary ductal dilatation. Her common bile duct diameter is 4 mm. There may be mild layering dependent gallbladder sludge. The right renal length is 10.1 cm, left renal length is 11.1. Ribs and bowel gas limited visualization of the right renal lower pole and left renal upper pole and lower pole. No renal masses or hydronephrosis documented. Spleen was 11.9 cm with the impression that patient has gallbladder sludge, no gallstones or gallbladder inflammation evident. No biliary ductal dilatation. As the patient continued to complain of pain, she was admitted, continued on all her medication. Started on IV antibiotics and fentanyl injection. PAST MEDICAL HISTORY: Significant for migraine headache, bronchial asthma. She has also had obstructive sleep apnea, on CPAP. Has had a history of MRSA skin infection in her neck. PAST SURGICAL HISTORY: Significant for back surgery x 4, , tonsillectomy, total abdominal hysterectomy, spinal stimulator placement and removal. ALLERGIES: She is allergic to VANCOMYCIN. MEDICATIONS: She is currently on following medications: She is on albuterol sulfate 1 puff every 6 hours, Inderal longer acting 60 mg daily, opiate agonist hydrocodone/APAP 5/325 one tablet every 6 hours, escitalopram oxalate 20 mg daily, Breo Ellipta 100/25 one puff daily and Singulair 10 mg at bedtime. FAMILY HISTORY: She has one brother at the age of 42 because of COPD. One sister younger and still alive and healthy. Her father is still alive in his 70s and has hypertension. Mother is still alive in her 70s and has hypertension. SOCIAL HISTORY: She is , has 2 daughters. She never smoked. Drinks alcohol occasionally. 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 REVIEW OF SYSTEMS: The patient denied any blurring of vision, cataract, glaucoma or macular degeneration. Denied any earache, tinnitus or sensorineural deafness. Denied any nosebleeds, stuffy nose or postnasal drip. Denied any sore throat, sore tongue, toothache, hoarseness of voice or difficulty swallowing. Denied any nausea, vomiting, diarrhea or constipation. Denied any hematemesis, melena or hematochezia. Denied any dysuria, frequency or hematuria. Denied any chest pain, shortness of breath. Did complain of cough. Did complain of shortness of breath, but denied any orthopnea or paroxysmal nocturnal dyspnea. PHYSICAL EXAMINATION: GENERAL: On arrival to the Emergency Room, she looked well and was clearly in no apparent respiratory distress. No pallor, jaundice, cyanosis, or thyromegaly. No jugular venous distension. No limb edema. VITAL SIGNS: Her heart rate was 60, blood pressure was 123/73, temperature was 99.8, respiratory rate was 18 and oxygen saturation was 98% on room air. HEENT: Showed normocephalic, atraumatic. NECK: Supple. HEART: Showed normal first and second heart sounds. No gallop, rub or murmur. CHEST: Clear to auscultation. No crepitation or rhonchi. ABDOMEN: Distended, soft. Tenderness mostly in the right upper quadrant. There is no guarding or rigidity. No organomegaly. All hernial orifice intact. Bowel sounds normal. NEUROLOGIC: She was awake, alert, responding appropriately. Her cranial nerves intact. EXTREMITIES: She moves extremities without difficulty. LABORATORY DATA: On admission showed a white cell count of 12,500, hemoglobin 12.7, hematocrit 37.9, MCV 86 and platelet count of 300,000 with normal manual differential. Her chemistry showed a serum sodium 131, potassium 4.1, chloride 101, bicarbonate 27, anion gap of 3, BUN 17, creatinine 1, estimated GFR was 57 mL per minute. Her glucose was 82, calcium was 8.8. Total bilirubin, AST, ALT elevated. Alkaline phosphatase normal. Total protein was 7.6, albumin 3.3. Her serum lipase was 102. Her urinalysis showed the urine was yellow, cloudy with a pH of 5.5, specific gravity of 1.015 and the urine was negative for protein, glucose, ketones, small amount of blood, negative for nitrite and leukocyte esterase. There was small amount of leukocyte esterase. There was 1-2 rbc's, 5-10 wbc's, very few bacteria. On her last visit, she had had an abdomen and pelvis CT scan without contrast and it showed that the patient's heart is normal in size. No pericardial or pleural effusion, clear lung bases. Liver, spleen, gallbladder, pancreas, adrenals were within normal limits. No nephrolithiasis or hydronephrosis. No suspicious renal lesion. No free pelvic fluid or ascites. No enlarged retroperitoneal or pelvic lymphadenopathy. No bowel obstruction, normal appendix, no pneumoperitoneum. Urinary bladder is within normal limits. No suspicious bony lesion. PLAN: To continue with IV fluid. We will repeat her lab work again tomorrow and continue with IV antibiotic, pain management. So far, obviously or potential cause of pain in the right upper quadrant has been excluded. BILLY PRIETO MD DR: SOLOMON/skinny JOB#: [id number] / [id number]
[2018-09-08 17:56] VITALS: BP 156/72
[2018-09-08] MEDS ORDERED: MAGNESIUM HYDROXIDE 2,400 MG/30 ML ORAL.SUSP. PO PRN (18:15)
[2018-09-08 20:24] VITALS: BP 168/87
[2018-09-08] MEDS ORDERED: MONTELUKAST 10 MG TABLET. PO SCH (21:00)
[2018-09-08 21:30] VITALS: BP 164/78
[2018-09-08] MEDS: LACTOBACILLUS RHAMNOSUS GG 1 CAPSULE. PO SCH (21:34)
[2018-09-08 23:18] VITALS: BP 171/89
--- NOTE | 2018-09-09 00:13 | PN ---
DATE: 09/08/2018 SUBJECTIVE: The patient was admitted yesterday with pain in her right upper quadrant and right flank area. It started since last Friday. She was extensively investigated and basically abdomen and pelvis CT scan was unremarkable. Abdominal ultrasound was unremarkable. She did have mildly deranged liver enzymes and also mild leukocytosis. She was started on IV ceftriaxone. When I saw her this afternoon, she said that she continued to have pain in the right upper quadrant and was able to tolerate some clear liquid diet. PHYSICAL EXAMINATION: GENERAL: When I saw her, she looked well and was clearly in no apparent respiratory distress, pale, but no jaundice, cyanosis, or thyromegaly. No jugular venous distension. No limb edema. VITAL SIGNS: Her heart rate was 50, blood pressure is 136/75, temperature was 97.9, respiratory rate was 18, and oxygen saturation was 96% on room air. ABDOMEN: Examination showed tenderness mostly in the right upper quadrant. SKIN: Showed no evidence of any rash or shingles. LABORATORY DATA: Showed a white cell count is slightly down at 9800, hemoglobin 11, hematocrit 34, MCV 87 and platelet count 262,000. Chemistry showed that serum sodium was 140, potassium 4.1, chloride 107, bicarbonate 26, anion gap of 7, BUN 14, creatinine 1, estimated GFR was 57 mL per minute. Her glucose was 88, calcium was 8.1. ASSESSMENT: The patient continued to complain of right upper quadrant and right flank pain. CT scan of the ultrasound showed presence of sludge. She has mildly deranged liver enzyme and she has also mild leukocytosis, responded to antibiotic. PLAN: My plan is to arrange for her to have a hepatobiliary scan tomorrow. BILLY PRIETO MD DR: SOLOMON/skinny JOB#: [id number] / [id number]
[2018-09-09 01:06] VITALS: BP 156/78
[2018-09-09] MEDS: IV NORMAL SALINE 1,000ML 1,000 ML IV SCH ×2 (04:15→11:58)
[2018-09-09] MEDS: ALBUTEROL SULFATE 2.5 MG/3 ML NEBU. NEB SCH ×2 (05:49→11:58)
[2018-09-09 05:57] VITALS: BP 139/75
[2018-09-09 06:45] LABS: ALBUMIN 2.6 g/dL (3.4-5.0); ALBUMIN/GLOBULIN RATIO 0.7 (1.0-1.7); CALCIUM 7.8 mg/dL (8.5-10.1); CREATININE 0.9 mg/dL (0.6-1.0); POTASSIUM 4.2 mmol/L (3.5-5.1); TOTAL BILIRUBIN 0.2 mg/dL (0.2-1.0); TOTAL PROTEIN 6.4 g/dL (6.4-8.2)
[2018-09-09] MEDS: BUDESONIDE 0.5 MG/2 ML NEBU NEB SCH (08:00)
[2018-09-09] MEDS: LACTOBACILLUS RHAMNOSUS GG 1 CAPSULE. PO SCH (09:00)
[2018-09-09] MEDS: PROPRANOLOL ER 60 MG CAP.SA.24H. PO SCH (09:00)
[2018-09-09] MEDS: CITALOPRAM 20 MG TABLET. PO SCH (09:00)
[2018-09-09] MEDS ORDERED: SINCALIDE IV ONE (10:50)
[2018-09-09] MEDS ORDERED: NORMAL SALINE IV ONE (10:50)
--- NOTE | 2018-09-09 12:28 | RAD ---
Radionuclide hepatobiliary scan with gallbladder ejection fraction, 09/09/2018: HISTORY: Abdominal pain and nausea Following IV injection of 5.5 mCi of technetium 99m Choletec there was prompt uptake of the radionuclide from the blood stream by the liver. Activity is present in the gallbladder and bile ducts at 15 minutes. Initial images obtained out to 1 hour showed increasing gallbladder activity without extension into the small bowel. Additional imaging was then performed following IV injection of 2.3 mcg of cholecystokinin. Activity does extend into the small bowel following the cholecystokinin injection. The gallbladder ejection fraction is low, measured at 14 percent. IMPRESSION: 1. No evidence of cystic duct or common bile duct obstruction. 2. Low gallbladder ejection fraction of 14 percent. Electronically signed by: Luis Eduardo Barrientos MD (09/09/2018 12:26 PM) [facility]
[2018-09-09 12:42] VITALS: BP 139/75
--- NOTE | 2018-09-09 15:20 | DS ---
DATE OF DISCHARGE: HOSPITAL COURSE: The patient is a 53-year-old female patient who was admitted with pain in her right upper quadrant started since last Friday. She was seen in the Emergency Room on 09/05/2018 and has had a CT scan of the abdomen and pelvis, which was unrevealing. She was discharged home and was again admitted on 09/07/2018 with a complaint of right upper quadrant pain and abdominal ultrasound showed that the patient has gallbladder sludge, no gallstone or gallbladder inflammation evident. No biliary ductal dilatation, however, she continued to complain of severe right upper quadrant pain. We did a HIDA scan, which showed no evidence of cystic duct or common bile duct obstruction; however, low gallbladder ejection fraction of 14% and therefore, the patient continued to complain of pain in the right upper quadrant area. Decision was made to transfer her to [facility] for possible biliary dyskinesia and to consult the surgical team to see whether she is a candidate for laparoscopic cholecystectomy. PHYSICAL EXAMINATION: GENERAL: When I saw her today, she looked well and was clearly in no apparent respiratory distress. No pallor, jaundice, cyanosis, or thyromegaly. No jugular venous distension. No limb edema. VITAL SIGNS: Her heart rate was 50, blood pressure was 139/75, temperature was 97.3, respiratory rate was 18 and oxygen saturation was 98%. HEAD, EYES, EARS, NOSE AND THROAT: Normocephalic, atraumatic. NECK: Supple. HEART: Showed normal first and second heart sounds with no gallop, rub or murmur. CHEST: Clear to auscultation. No crepitation or rhonchi. ABDOMEN: Distended, soft with tenderness mostly in the right upper quadrant. There is no guarding or rigidity. No organomegaly. All hernial orifices intact. Bowel sounds normal. NEUROLOGIC: She is awake, alert, responding appropriately. All cranial nerves intact. EXTREMITIES: She moves extremities without difficulty. She ambulates without assistance or assistive device. Her intake was 3800, output was 1100. LABORATORY DATA: Her lab work today showed a white cell count of 9800, hemoglobin 11.4, hematocrit 34, MCV 87 and platelet count 262,000. Her chemistry showed a serum sodium 142, potassium 4.2, chloride 108, bicarbonate 26, anion gap of 8, BUN 8, creatinine 0.9, estimated GFR was 65 mL per minute. Her glucose was 91, calcium was 7.8. Total bilirubin and alkaline phosphatase normal. AST and ALT are elevated, although trending down. Her total protein was 6.4, albumin was 2.6 and lipase was normal. DISCHARGE MEDICATIONS: She was transferred to [facility] to continue on normal saline at 125 mL per hour. Ceftriaxone 1 gram IV daily, albuterol sulfate 2.5 mg by nebulizer every 6 hours, propranolol 60 mg daily, Pulmicort 0.5 mg by nebulizer twice a day, Tylenol 650 mg daily, montelukast 10 mg daily at bedtime, Lactobacillus rhamnosus 1 capsule twice a day and fentanyl citrate 50 mcg IV every 2 hours. FINAL DISCHARGE DIAGNOSES: 1. Right upper quadrant due to probably biliary dyskinesia. 2. Migraine headache. 3. Bronchial asthma. 4. Obstructive sleep apnea, on CPAP. BILLY PRIETO MD DR: SOLOMON/skinny JOB#: [id number] / [id number]
== END 2018-09-09 16:24 | disposition short-term general hospital (02) | DRG 445 ==
LOC: ER 15:48 → 1 SOUTH 17:52 → ICU 09-08 16:29
PROVIDERS: ADMIT Internal Medicine; ATTEND Internal Medicine
DX: K82.8 Other specified diseases of gallbladder (principal); N10 Acute pyelonephritis; G43.909 Migraine, unspecified, not intractable, without status migrainosus; G47.33 Obstructive sleep apnea (adult) (pediatric); F32.9 Major depressive disorder, single episode, unspecified; F41.9 Anxiety disorder, unspecified; M19.90 Unspecified osteoarthritis, unspecified site; J45.909 Unspecified asthma, uncomplicated; Z82.49 Family history of ischemic heart disease and other diseases of the circulatory system; Z82.5 Family history of asthma and other chronic lower respiratory diseases; Z86.14 Personal history of Methicillin resistant Staphylococcus aureus infection; Z90.710 Acquired absence of both cervix and uterus; Z90.49 Acquired absence of other specified parts of digestive tract
CPT/HCPCS: 36415; 76700; 78227; 80048; 80053; 81001; 83690; 85025; 87086; 87641; 94640; 96361; 96365; 96375; A9537; J0696; J1885; J2405; J2805; J3010; J7613; J7626; 99285-25; J7030

== ENCOUNTER 2019-01-02 09:49 | Emergency (ER) | payer OTHER, BC ==
[~2019-01-02] VITALS: Ht 162.6 cm; Wt 113.4 kg
[~2019-01-02 09:49] MED LIST changes: +ALBU2.5V8 INH; +ESCITALOPRAM OX20 MG PO; +FLUT1AER IH; +MONT10TA80 PO; +PROP60CA36 PO
[2019-01-02 09:50] VITALS: BP 159/104
[2019-01-02] MEDS ORDERED: EYE-STREAM OPTH SOLUTION 30 ML BOTTLE. ONE (09:59)
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
[2019-01-02] MEDS ORDERED: EYE-STREAM OPTH SOLUTION 30 ML BOTTLE. OU ONE (10:15)
--- NOTE | 2019-01-02 10:49 | RAD ---
Exam performed: CT scan of the head and cervical spine without contrast. Date of Service: 01/02/2019 Comparison: None available Clinical History: Fall Technique: Helical acquisitions are obtained from the foramen magnum to the vertex without intravenous administration of contrast. In addition helical acquisitions are obtained through the cervical spine. Sagittal and coronal reformatted images are obtained and reviewed. CT scan head findings: The ventricular system is midline without evidence of dilatation. Normal medley-white differentiation is maintained. There is no extra axial fluid collection, intraparenchymal hemorrhage or mass lesion. The visualized orbits, paranasal sinuses and the mastoid air cells are clear. The calvarium is intact. Impression: 1. Normal non-contrast CT of the brain. End Impression. CT cervical spine findings: Normal sagittal alignment is preserved. The vertebral body heights and intravertebral disc spaces are maintained. There is no alessandra or retrolisthesis. No prevertebral soft tissue swelling is identified. There are no fractures. No definite lymphadenopathy or masses are seen within the neck. The visualized thyroid and salivary glands appears preserved. Impression: 1. No acute abnormality seen in the CT scan cervical spine. PQRS Compliance Statement: One or more of the following individualized dose reduction techniques were utilized for this examination: 1. Automated exposure control 2. Adjustment of the mA and/or kV according to patient size 3. Use of iterative reconstruction technique End impression Exam performed:3 views leftshoulder Indication: Left shoulder pain, status post fall Date of service: 01/02/2019. Comparison: None available Findings :AP radiographs of the shoulder in internal and external rotation as well as a Y-view reveal the osseous structures to be intact and well aligned. The joint space is well-preserved. The articular margins are smooth. Impression: Radiographically normal shoulder. Electronically signed by: Sondra Sesay MD (01/02/2019 10:46 AM) [facility]
[2019-01-02] MEDS ORDERED: ACETAMINOPHEN 325 MG TABLET PO ONE (11:00)
== END 2019-01-02 10:59 | disposition home or self-care (01) ==
LOC: ER 09:49
DX: M54.2 Cervicalgia (principal); M25.512 Pain in left shoulder; G89.11 Acute pain due to trauma; M19.90 Unspecified osteoarthritis, unspecified site; J45.909 Unspecified asthma, uncomplicated; G43.909 Migraine, unspecified, not intractable, without status migrainosus; Z88.1 Allergy status to other antibiotic agents; V43.52XA Car driver injured in collision with other type car in traffic accident, initial encounter; Y93.I9 Activity, other involving external motion; Y92.488 Other paved roadways as the place of occurrence of the external cause; Y99.8 Other external cause status
CPT/HCPCS: 70450; 72125; 73030; 99284

== ENCOUNTER 2019-01-27 17:10 | Inpatient (IN) | payer BC, OTHER ==
[~2019-01-27] VITALS: Ht 162.6 cm; Wt 112.7 kg
--- NOTE | 2019-01-27 17:54 | ED.ADGEN ---
Past History Past Medical History: Anxiety, Arthritis, Asthma, Depression, Hypertension, Migraines, Other Past Surgical History: Cholecystectomy, , Hysterectomy Alcohol Use: Occasionally Drug Use: None Adult General Chief Complaint Chief Complaint "...My doctor... Dr. Wright sent me over to be admitted.. worried I may be septic from the cellulitis...I just started yesterday in this Rt. leg..."..." Now this whole Rt. leg is red..." HPI HPI Patient is a 53 year old female who presents with above hx and complaints of cellulitis and right leg. Patient has had previous episodes of cellulitis but not similar to her current presentation. Patient denies any history immunosuppression. No history of trauma. No history of specific ill contacts. Patient states symptoms started in the last 24 hours. Pt. has followed with Dr. Ward, Dr. Weston and Dr. Wright. Review of Systems Review of Systems Constitutional: Complaints of fever Eyes: Denies change in visual acuity, redness, or eye pain [] HENT: Denies nasal congestion or sore throat [] Respiratory: Denies cough or shortness of breath [] Cardiovascular: No additional information not addressed in HPI [] GI: Denies abdominal pain, nausea, vomiting, bloody stools or diarrhea [] : Denies dysuria or hematuria [] Musculoskeletal: Denies back pain or joint pain [] Integument: Patient has complaints of cellulitis Neurologic: Denies headache, focal weakness or sensory changes [] Endocrine: Denies polyuria or polydipsia [] All other systems were reviewed and found to be within normal limits, except as documented in this note. Family History Family History Noncontributory Current Medications Current Medications Current Medications Medications (Trade) Dose Ordered Sig/Jorge Start Time Stop Time Status Last Admin Dose Admin Aspirin (Children'S Aspirin) 324 mg 1X ONCE 01/27/19 18:15 01/27/19 18:25 DC 01/27/19 18:27 324 MG Ceftriaxone Sodium 1 gm/ Sodium Chloride 50 ml @ 100 mls/hr 1X ONCE 01/27/19 18:15 01/27/19 18:44 DC 01/27/19 18:33 100 MLS/HR Ceftriaxone Sodium (Rocephin) 1 gm STK-MED ONCE 01/27/19 18:30 01/27/19 18:30 DC Fluconazole/ Sodium Chloride 50 ml @ 100 mls/hr Q24H 01/27/19 18:15 01/27/19 19:19 DC 01/27/19 20:18 100 MLS/HR Lactated Ringer's 1,000 ml @ 1,000 mls/hr Q1H 01/27/19 18:07 01/27/19 19:06 DC 01/27/19 18:29 1,000 MLS/HR Sodium Chloride 50 ml @ As Directed STK-MED ONCE 01/27/19 18:30 01/27/19 18:30 DC Allergies Allergies Allergies Coded Allergies Type Severity Reaction Last Updated Verified vancomycin Allergy Severe 01/27/19 Yes Physical Exam Physical Exam Constitutional: Moderate acute distress, non-toxic appearance. [] HENT: Normocephalic, atraumatic, bilateral external ears normal, oropharynx moist, no oral exudates, nose normal. [] Eyes: PERRLA, EOMI, conjunctiva normal, no discharge. [] Neck: Normal range of motion, no tenderness, supple, no stridor. [] Cardiovascular: Tachycardia Heart rate regular rhythm, no murmur . PMI to the left Lungs & Thorax: Bilateral breath sounds equal at apex with few scattered wheezes and some basilar crackles on auscultation [] Abdomen: Bowel sounds normal, soft, no tenderness, no masses, no pulsatile masses. Obese. Old surgery scars. Skin: Warm, dry,, Rt. leg erythema, cellulitis right leg -calf and thigh Back: No tenderness, no CVA tenderness. [] Extremities: Right leg tenderness, no cyanosis, no clubbing, ROM intact, right leg edema. [] No specific findings of cording Neurologic: Alert and oriented X 3, normal motor function, normal sensory function, no focal deficits noted. [] Psychologic: Affect anxious, judgement normal, mood normal. [] Current Patient Data Vital Signs Vital Signs Date Time Temp Pulse Resp B/P (MAP) Pulse Ox O2 Delivery O2 Flow Rate FiO2 01/27/19 18:36 103.3 119 34 150/89 (109) 98 Room Air Lab Results Laboratory Tests Test 01/27/19 18:00 White Blood Count 21.3 x10^3/uL (4.0-11.0) H Red Blood Count 4.81 x10^6/uL (3.50-5.40) Hemoglobin 13.6 g/dL (12.0-15.5) Hematocrit 41.6 % (36.0-47.0) Mean Corpuscular Volume 87 fL (79-100) Mean Corpuscular Hemoglobin 28 pg (25-35) Mean Corpuscular Hemoglobin Concent 33 g/dL (31-37) Red Cell Distribution Width 13.2 % (11.5-14.5) Platelet Count 210 x10^3/uL (140-400) Neutrophils (%) (Auto) 92 % (31-73) H Lymphocytes (%) (Auto) 5 % (24-48) L Monocytes (%) (Auto) 3 % (0-9) Eosinophils (%) (Auto) 0 % (0-3) Basophils (%) (Auto) 0 % (0-3) Neutrophils # (Auto) 19.6 x10^3uL (1.8-7.7) H Lymphocytes # (Auto) 1.0 x10^3/uL (1.0-4.8) Monocytes # (Auto) 0.6 x10^3/uL (0.0-1.1) Eosinophils # (Auto) 0.0 x10^3/uL (0.0-0.7) Basophils # (Auto) 0.1 x10^3/uL (0.0-0.2) Segmented Neutrophils % 74 % (35-66) H Band Neutrophils % 18 % (0-9) H Lymphocytes % 5 % (24-48) L Monocytes % 3 % (0-10) Hypersegmented Neutrophils Present Platelet Estimate Adequate (ADEQUATE) Prothrombin Time 11.7 SEC (9.4-11.4) H Prothrombin Time INR 1.1 (0.9-1.1) Activated Partial Thromboplast Time 30 SEC (23-33) D-Dimer (Iva) 0.92 mg/L (0.00-0.50) H Sodium Level 135 mmol/L (136-145) L Potassium Level 4.2 mmol/L (3.5-5.1) Chloride Level 98 mmol/L (98-107) Carbon Dioxide Level 24 mmol/L (21-32) Anion Gap 13 (6-14) Blood Urea Nitrogen 13 mg/dL (7-20) Creatinine 1.5 mg/dL (0.6-1.0) H Estimated GFR (Cockcroft-Gault) 36.1 Glucose Level 118 mg/dL (70-99) H Lactic Acid Level 2.0 mmol/L (0.4-2.0) Calcium Level 8.6 mg/dL (8.5-10.1) Magnesium Level 1.6 mg/dL (1.8-2.4) L Total Bilirubin 0.8 mg/dL (0.2-1.0) Direct Bilirubin 0.3 mg/dL (0.0-0.2) H Aspartate Amino Transferase (AST) 67 U/L (15-37) H Alanine Aminotransferase (ALT) 79 U/L (14-59) H Alkaline Phosphatase 77 U/L (46-116) Creatine Kinase 69 U/L (26-192) Troponin I Quantitative < 0.017 ng/mL (0-0.055) DE-Kcj-P-Type Natriuretic Peptide 461 pg/mL (0-124) H Total Protein 7.9 g/dL (6.4-8.2) Albumin 3.5 g/dL (3.4-5.0) Lipase 72 U/L (73-393) L EKG EKG My interpretation EKG shows a sinus tachycardia heart 15 bpm. No findings acute STEMI of contralateral changes.[] Radiology/Procedures Radiology/[place] [address] IMAGING REPORT Signed PATIENT: ROBER LOWE ACCOUNT: [id number] : 1965 LOCATION: ER AGE: 53 SEX: F EXAM STATUS: REG ER ORD. PHYSICIAN: PAM GOLDBERG MD REASON: DYSPNEA PROCEDURE: PORTABLE CHEST 1V Exam: Chest one view INDICATION: Dyspnea TECHNIQUE: Frontal view of the chest Comparisons: 11/20/2017 FINDINGS: The cardiomediastinal silhouette and pulmonary vessels are within normal limits. The lung and pleural spaces are clear. IMPRESSION: No acute cardiopulmonary process. Electronically signed by: Sebastian Godfrey MD (01/27/2019 6:30 PM) [facility] DICTATED AND SIGNED BY: SEBASTIAN GODFREY MD DATE: 01/27/19 [id number] CC: PAM GOLDBERG MD; GINA WARD PAC ~ Ultrasound of right leg pending at time of admission[] Course & Med Decision Making Course & Med Decision Making Pertinent Labs and Imaging studies reviewed. (See chart for details). Patient admitted to , for IV antibiotic and further evaluation. [] Final Impression Final Impression 1. Cellulitis- Rt Leg 2. Leukocytosis 21.3, with elevated segs 74 , 18 Bands and hypersegmentation 3. Hyponatremia 135 4. Elevated Creat. 1.5 5. Elevated AST/ALT 67 /79 6. Hypo-magnesium 1.6 7. Elevated d-dimer 0.92 [] Dragon Disclaimer Dragon Disclaimer This electronic medical record was generated, in whole or in part, using a voice recognition dictation system. PAM GOLDBERG MD Jan 27, 2019 17:54
[2019-01-27] MEDS ORDERED: IV RINGERS SOLUTION,LACTATED 1,000 ML IV SCH (18:07)
[2019-01-27] MEDS ORDERED: ASPIRIN 81 MG TAB.CHEW PO ONE (18:15)
[2019-01-27] MEDS ORDERED: FLUCONAZOLE 100MG/50ML PREMIX 50 ML IV SCH (18:15)
[2019-01-27 18:28] LABS: BASO # 0.1 x10^3/uL (0.0-0.2); BASO % 0 % (0-3); EOS % 0 % (0-3); HEMATOCRIT 41.6 % (36.0-47.0); HEMOGLOBIN 13.6 g/dL (12.0-15.5); LYMPH % 5 % (24-48); MEAN CORPUSCULAR HEMOGLOBIN 28 pg (25-35); MEAN CORPUSCULAR HGB CONC 33 g/dL (31-37); MEAN CORPUSCULAR VOLUME 87 fL (79-100); MONO # 0.6 x10^3/uL (0.0-1.1); MONO % 3 % (0-9); NEUT # 19.6 x10^3uL (1.8-7.7); NEUT % 92 % (31-73); PLATELET COUNT 210 x10^3/uL (140-400); RED BLOOD COUNT 4.81 x10^6/uL (3.50-5.40); RED CELL DISTRIBUTION WIDTH 13.2 % (11.5-14.5); WHITE BLOOD COUNT 21.3 x10^3/uL (4.0-11.0)
[2019-01-27] MEDS ORDERED: IV NORMAL SALINE 50ML 50 ML ONE (18:30)
[2019-01-27] MEDS ORDERED: cefTRIAXone SODIUM 1 GM VIAL ONE (18:30)
--- NOTE | 2019-01-27 18:33 | RAD ---
Exam: Chest one view INDICATION: Dyspnea TECHNIQUE: Frontal view of the chest Comparisons: 11/20/2017 FINDINGS: The cardiomediastinal silhouette and pulmonary vessels are within normal limits. The lung and pleural spaces are clear. IMPRESSION: No acute cardiopulmonary process. Electronically signed by: Sebastian May MD (01/27/2019 6:30 PM) [facility]
[2019-01-27 18:47] LABS: ALBUMIN 3.5 g/dL (3.4-5.0); CALCIUM 8.6 mg/dL (8.5-10.1); CREATININE 1.5 mg/dL (0.6-1.0); DIRECT BILIRUBIN 0.3 mg/dL (0.0-0.2); GFR 36.1; MAGNESIUM 1.6 mg/dL (1.8-2.4); POTASSIUM 4.2 mmol/L (3.5-5.1); TOTAL BILIRUBIN 0.8 mg/dL (0.2-1.0); TOTAL PROTEIN 7.9 g/dL (6.4-8.2)
[2019-01-27] MEDS ORDERED: ACETAMINOPHEN 500 MG TABLET PO ONE ×3 (18:53→19:00)
[2019-01-27] MEDS ORDERED: ENOXAPARIN ** NOTE DOSE ** SYRINGE SQ ONE (19:00)
[2019-01-27] MEDS ORDERED: ACETAMINOPHEN 325 MG TABLET PO PRN (19:00)
[2019-01-27] MEDS ORDERED: ONDANSETRON PF 4 MG/2 ML VIAL. IV PRN (19:00)
[2019-01-27 19:13] LABS: % BANDS 18 % (0-9); % LYMPHS 5 % (24-48); % MONOS 3 % (0-10); % SEGS 74 % (35-66); HYPERSEGS PRESENT; PLT ESTIMATE ADEQUATE (ADEQUATE)
[2019-01-27 20:58] VITALS: BP 92/63
[2019-01-27] MEDS ORDERED: SULFAMETHOXAZOLE/TRIMETHOPRIM 20 ML in IV DEXTROSE 5% 500 ML IV SCH (22:00)
--- NOTE | 2019-01-27 23:16 | NUR ---
The patient, ROBER LOWE, 53 y/o, F admitted by BILLY PRIETO MD, was given written information regarding hospital policies, unit procedures and contact persons. Valuables were checked and noted. PT presented with 2-day history of swelling and pain to RLE. PT with nausea 2 days ago, none now. PT admitted for cellulitis. Reviewed PT's PMH, PSH, SH, FH and medications. PT states she is no longer taking any medications. PT's pain at time of admission was an 8/10. PT given Tylenol as ordered. PT assessed, photos taken, placed in chart.
[2019-01-27 23:20] VITALS: BP 94/63
[2019-01-28] MEDS ORDERED: MAGNESIUM HYDROXIDE 2,400 MG/30 ML ORAL.SUSP. PO ONE (06:00)
[2019-01-28 06:03] VITALS: BP 101/64
[2019-01-28 06:44] LABS: BASO % 0 % (0-3); EOS % 0 % (0-3); HEMOGLOBIN 12.6 g/dL (12.0-15.5); LYMPH # 0.9 x10^3/uL (1.0-4.8); LYMPH % 5 % (24-48); MEAN CORPUSCULAR HEMOGLOBIN 29 pg (25-35); MEAN CORPUSCULAR HGB CONC 33 g/dL (31-37); MEAN CORPUSCULAR VOLUME 87 fL (79-100); MONO # 0.5 x10^3/uL (0.0-1.1); MONO % 3 % (0-9); NEUT # 16.4 x10^3uL (1.8-7.7); NEUT % 92 % (31-73); PLATELET COUNT 169 x10^3/uL (140-400); RED BLOOD COUNT 4.38 x10^6/uL (3.50-5.40); RED CELL DISTRIBUTION WIDTH 13.4 % (11.5-14.5); WHITE BLOOD COUNT 17.9 x10^3/uL (4.0-11.0)
[2019-01-28 06:56] LABS: CALCIUM 8.1 mg/dL (8.5-10.1); CREATININE 1.4 mg/dL (0.6-1.0); POTASSIUM 3.5 mmol/L (3.5-5.1)
--- NOTE | 2019-01-28 08:25 | NUR ---
Pt is alert and oriented. Complains of headache, back pain and right leg pain. Pt was given tylenol for pain last night, pt states it did not help. RN called Dr Garza and received new orders for pain medication. Pts right leg swollen and red. WCTM.
[2019-01-28] MEDS: HYDROcodone/APAP 5/325MG 1 TAB TABLET PO PRN ×3 (08:33→18:12)
[2019-01-28] MEDS: SMZ/TMP 800/160MG TABLET. PO SCH ×2 (08:34→20:09)
[2019-01-28] MEDS: FLUCONAZOLE 100 MG TABLET. PO SCH (08:34)
[2019-01-28] MEDS: LACTOBACILLUS RHAMNOSUS GG 1 CAPSULE. PO SCH ×2 (08:36→20:09)
[2019-01-28] MEDS ORDERED: ENOXAPARIN ** NOTE DOSE ** SYRINGE SQ ONE (09:00)
[2019-01-28 10:42] VITALS: BP 111/71
--- NOTE | 2019-01-28 11:04 | RAD ---
Right Lower Extremity Venous Doppler Ultrasound History: Cellulitis Comparison: None Procedure: Color flow, duplex, spectral analysis and 2D images are obtained with and without compression in the area of the common femoral vein, superficial femoral vein - femoral vein junction, main femoral vein (superficial femoral vein) and popliteal vein. Veins of the proximal calf are also imaged. Findings: There is normal duplex flow, color flow and compressibility of all visualized vein segments. No evidence of deep venous thrombus is present. Impression: No evidence of DVT. Electronically signed by: Sundeep Gonsalves III, MD (01/28/2019 11:01 AM) [facility]
--- NOTE | 2019-01-28 11:05 | RAD ---
DUPLEX SONOGRAPHY OF THE PERIPHERAL ARTERIAL SYSTEM OF THE RIGHT LOWER EXTREMITY Clinical indications: Right lower extremity pain and redness and swelling. History of cellulitis. Findings: Duplex sonography of the peripheral arterial system of the right lower extremity including medley scale and color flow and spectral waveform analysis was performed.Triphasic and biphasic waveforms are seen. No occlusive disease is seen. No significant stenosis is identified. The measurements were performed using the NASCET criteria. Peak systolic flow velocities are as follows: Right leg: common femoral artery- 119 cm/sec, profunda femoral artery -42 cm/sec, proximal superficial femoral artery -116 cm/sec, mid superficial femoral artery -136 cm/sec, distal superficial femoral artery- 147 cm/sec, popliteal artery -86 cm/sec, proximal posterior tibial artery- 71 cm/sec, distal posterior tibial artery- 70 cm/sec, peroneal artery- 89 cm/sec, anterior tibial artery- 70 cm/sec, dorsalis pedis artery -46 cm/sec. Impression: No significant peripheral arterial vascular disease of the right lower extremity is seen by duplex sonographic evaluation. Electronically signed by: Rubén Mcguire MD (01/28/2019 11:03 AM) [place] [id number]
[2019-01-28 15:10] VITALS: BP 120/75
[2019-01-28] MEDS: IV DEXTROSE 5 %-0.45 % NACL 1,000 ML IV SCH (17:29)
--- NOTE | 2019-01-28 18:06 | HP ---
ADMIT DATE: 01/27/2019 HISTORY OF PRESENT ILLNESS: The patient is a 53-year-old female patient, who came to the Emergency Room from her primary care physician's office for admission. She had developed marked redness, swelling, pain, fever, right leg with erythema extending all the way to the right groin. The patient had similar episodes of cellulitis before. The patient denied any trauma. Her symptoms started for about 24 hours. She was evaluated in the Emergency Room, was found to be febrile, and the temperature was 103.3 on arrival, she was tachycardic and tachypneic. Her white cell count was 21,000. She was also slightly dehydrated and has abnormal liver enzymes and was admitted after obtaining multiple blood cultures and she was started on trimethoprim and sulfamethoxazole as well as IV fluid and ceftriaxone together with fluconazole. PAST MEDICAL HISTORY: Significant for migraine headache and bronchial asthma. She also has obstructive sleep apnea, on CPAP. She had a history of MRSA skin infection in her neck. PAST SURGICAL HISTORY: Significant for back surgery x 4, , tonsillectomy, total abdominal hysterectomy, and spinal stimulator placement and removal. ALLERGIES: She is allergic to VANCOMYCIN. MEDICATION: As per EMR. FAMILY HISTORY: She has one brother, who at the age of 42 because of COPD and one sister, younger and still alive and healthy. Her father is still alive in his 70s and has hypertension. Mother is still alive in her 70s and has hypertension. SOCIAL HISTORY: She is and has 2 daughters. She never smoked. Drinks alcohol occasionally. 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 REVIEW OF SYSTEMS: As per history of present illness. MEDICATIONS: She is currently on following medications: She is on Breo Ellipta 100/25 one puff once a day, escitalopram oxalate 20 mg once a day, albuterol sulfate 1 puff every 6 hours, Singulair 10 mg at bedtime, and propranolol 60 mg daily. PHYSICAL EXAMINATION: GENERAL: On arrival to the Emergency Room, she was tachypneic and febrile, but there was no pallor, jaundice, cyanosis, or thyromegaly. No jugular venous distention. No limb edema. VITAL SIGNS: Her heart rate was 118, blood pressure was 150/89, temperature was 103.3, respiratory rate was ____, and oxygen saturation was 98%. HEAD, EYES, EARS, NOSE, AND THROAT: Showed normocephalic and atraumatic. NECK: Supple. HEART: Showed normal first and second heart sounds with no gallop, rub, or murmur. CHEST: Clear to auscultation. No crepitation or rhonchi. ABDOMEN: Distended, soft, and nontender. NEUROLOGIC: She is awake, alert, and responding appropriately. All cranial nerves are intact. EXTREMITIES: She moves extremities without difficulty. LABORATORY WORK: On admission showed a white cell count 21,300, hemoglobin 13.6, hematocrit 41.6, MCV 87, and platelet count 210,000 with normal manual differential. Her chemistry showed a serum sodium 135, potassium 4.2, chloride 98, bicarbonate 24, anion gap of 13, BUN 13, creatinine 1.5, estimated GFR was 36 mL per minute. Her glucose 118, calcium was 8.6, magnesium was 1.6. Total bilirubin and alkaline phosphatase are normal. AST and ALT are slightly elevated. Her total protein was 7.9 and albumin 3.5. Her prothrombin time 11.7, INR of 1.1, aPTT was 30. D-dimer was 0.92. The patient has had a chest x-ray, which showed that the cardiomediastinal silhouette and pulmonary vessels are within normal limits. The lungs and pleural spaces are clear. She has venous Doppler ultrasound of right lower extremity, which showed there is normal duplex color flow and compressibility of all visualized vein segments. No evidence of deep vein thrombosis is present and arterial study of the right lower extremity showed no significant peripheral arterial vascular disease of the right lower extremity is seen by duplex sonographic evaluation. ASSESSMENT AND PLAN: The patient was admitted with cellulitis of the right lower extremity and given that she is allergic to VANCOMYCIN, she was started on oral Bactrim, fluconazole, as well as IV Rocephin. We will continue these and await the result of the culture and sensitivity and will continue also with pain management. BILLY PRIETO MD DR: SOLOMON/skinny JOB#: [id number] / [id number]
[2019-01-28 21:16] VITALS: BP 135/72
[2019-01-28] MEDS: ONDANSETRON PF 4 MG/2 ML VIAL. IVP PRN (21:24)
[2019-01-28 23:46] VITALS: BP 106/65
[2019-01-29] MEDS: HYDROcodone/APAP 5/325MG 1 TAB TABLET PO PRN ×2 (00:12→09:22)
--- NOTE | 2019-01-29 00:17 | PN ---
DATE: 01/28/2019 SUBJECTIVE: The patient is resting, slightly propped up in bed, in no apparent distress. She is feeling generally much better. She has had no more headache. She is afebrile. However, her right lower extremity continued to be extremely swollen and erythematous. PHYSICAL EXAMINATION: GENERAL: When I examined her, she looked well and was clearly in no apparent distress. No pallor, jaundice, cyanosis or thyromegaly. VITAL SIGNS: Her heart rate was 83, blood pressure was 101/64, temperature was 98.1, respiratory rate 20 and oxygen saturation was 95%. HEAD, EYES, EARS, NOSE AND THROAT: Normocephalic, atraumatic. NECK: Supple. No jugular venous distention or edema. HEART: Showed normal first and second heart sounds. No gallop or murmur. CHEST: Clear to auscultation. No crepitation or rhonchi. ABDOMEN: Distended, soft, nontender. NEUROLOGIC: She is awake, alert, responding appropriately. All cranial nerves intact. EXTREMITIES: She moves extremities without difficulty; however, she is mostly bed bound. Her right lower extremity is markedly swollen, erythematous with erythema extending all the way to the right groin area. Her intake over the last 24 hours was 1620, output was 600. LABORATORY DATA: Today showed a white cell count is down to 17,900, hemoglobin 12.6, hematocrit 38, MCV 97, and platelet count of 169,000. Her serum sodium was 139, potassium 3.5, chloride 102, bicarbonate 25, anion gap of 12, BUN 16, creatinine 1.4, estimated GFR was 39 mL per minute. Her glucose 105, calcium was 8.1. PLAN: My plan is to continue with current plan of management. We will continue probably with some IV fluid and hopefully we might be able to do a CT angio of the chest tomorrow if her creatinine has improved further. BILLY PRIETO MD DR: SOLOMON/skinny JOB#: [id number] / [id number]
--- NOTE | 2019-01-29 02:28 | EKG ---
[address] [address] Test Date: 2019-01-27 Test Time: 18:23:19 Pat Name: ROBER LOWE Department: Room: 120 A Gender: F Environmental Tech: JERMAINE : 1965 Requested By: PAM GOLDBERG Order Number: [id number] Reading MD: Naman Mackay MD Measurements Intervals Perry Rate: 115 P: 24 SC: 156 QRS: 48 QRSD: 74 T: -1 QT: 300 QTc: 417 Interpretive Statements SINUS TACHYCARDIA Electronically Signed On 03-10-2019 7:50:20 [employer]ESSING by Naman Mackay MD
[2019-01-29] MEDS: IV DEXTROSE 5 %-0.45 % NACL 1,000 ML IV SCH ×2 (03:56→13:15)
--- NOTE | 2019-01-29 04:41 | NUR ---
ASSUMED CARE OF PT FROM DAY SHIFT PT RESTING IN BED WITH EIGHT LEG ELEVATED , RIGHT LEG NOTED WITH REDNESS AND SWELLING PT ABLE TO GET OUT OF BED TO BATHROOM BEARING WT ON LEG. 2/ PULSES NOTED. DISCUSSED PLAN OF CARE PT VERBALIZED UNDERSTANDING AND AGREEABLE. PAIN MEDICATION GIVEN DURING THIS SHIFT PT C/O LEG AND HEADACHE.. OTHERWISE PT RESTED THROUGHOUT HOURLY ROUNDS. WILL REPORT CHANGES OR ABNORMAL FINDINGS.
[2019-01-29 06:18] VITALS: BP 100/64
[2019-01-29 06:43] LABS: BASO % 1 % (0-3); EOS # 0.1 x10^3/uL (0.0-0.7); EOS % 2 % (0-3); HEMATOCRIT 37.3 % (36.0-47.0); HEMOGLOBIN 12.3 g/dL (12.0-15.5); LYMPH # 2.7 x10^3/uL (1.0-4.8); LYMPH % 45 % (24-48); MEAN CORPUSCULAR HEMOGLOBIN 30 pg (25-35); MEAN CORPUSCULAR HGB CONC 33 g/dL (31-37); MEAN CORPUSCULAR VOLUME 89 fL (79-100); MONO # 0.4 x10^3/uL (0.0-1.1); MONO % 8 % (0-9); NEUT # 2.7 x10^3uL (1.8-7.7); NEUT % 45 % (31-73); PLATELET COUNT 182 x10^3/uL (140-400); RED BLOOD COUNT 4.18 x10^6/uL (3.50-5.40); RED CELL DISTRIBUTION WIDTH 13.5 % (11.5-14.5); WHITE BLOOD COUNT 5.9 x10^3/uL (4.0-11.0)
[2019-01-29 06:49] LABS: ALBUMIN 3.3 g/dL (3.4-5.0); CALCIUM 8.5 mg/dL (8.5-10.1); GFR 57.6; POTASSIUM 3.9 mmol/L (3.5-5.1); TOTAL BILIRUBIN 0.3 mg/dL (0.2-1.0); TOTAL PROTEIN 6.7 g/dL (6.4-8.2)
[2019-01-29] MEDS: SMZ/TMP 800/160MG TABLET. PO SCH ×2 (08:01→20:32)
[2019-01-29] MEDS: LACTOBACILLUS RHAMNOSUS GG 1 CAPSULE. PO SCH ×2 (08:01→20:32)
[2019-01-29] MEDS: FLUCONAZOLE 100 MG TABLET. PO SCH (08:02)
[2019-01-29 11:01] VITALS: BP 147/82
[2019-01-29] MEDS ORDERED: IOHEXOL 350 MG/ML 100 ML VIAL. IV ONE (14:30)
[2019-01-29] MEDS ORDERED: CONTRAST GIVEN MC PRN (14:30)
--- NOTE | 2019-01-29 15:22 | RAD ---
Examination: CT ANGIOGRAPHY CHEST History: Elevated d-dimer Comparison/Correlation: None Findings: Axial images of the chest were obtained following IV contrast according to pulmonary arteriography protocol. Sagittal and coronal reformatted images were provided. Maximum intensity projection images were provided. Pulmonary arterial vasculature is normal with no thromboembolic disease. No infiltrate. No pleural or pericardial effusion. No enlarged lymph nodes. Tracheobronchial tree is bony structures are unremarkable. Spinal stimulator leads are present within the lower thoracic spinal canal. Thoracic aorta is grossly unremarkable although motion limits evaluation of the aortic root. Impression: No pulmonary arterial thromboembolic disease. No infiltrate. PQRS Compliance Statement: One or more of the following individualized dose reduction techniques were utilized for this examination: 1. Automated exposure control 2. Adjustment of the mA and/or kV according to patient size 3. Use of iterative reconstruction technique Electronically signed by: Ky Matias MD (01/29/2019 3:19 PM) [facility]
--- NOTE | 2019-01-29 15:36 | PN ---
DATE: 01/29/2019 SUBJECTIVE: The patient is resting, slightly propped up in bed, in no apparent distress. She is complaining of nausea and vomiting whenever she gets her pain medication. Her right lower extremity continued to be red and slightly swollen, but she is afebrile. Her white cell count is down from 21,000 to 5900. So far, her blood cultures have shown no growth. PHYSICAL EXAMINATION: GENERAL: When I examined her, she looked well and was clearly in no apparent respiratory distress. No pallor, jaundice, cyanosis or thyromegaly. No jugular venous distention. No limb edema. VITAL SIGNS: Her heart rate was 79, blood pressure was 147/82, temperature was 98, respiratory rate 20, and oxygen saturation was 96%. HEAD, EYES, EARS, NOSE AND THROAT: Showed normocephalic, atraumatic. NECK: Supple. HEART: Showed normal first and second heart sounds. No gallop or murmur. CHEST: Clear to auscultation. No crepitation or rhonchi. ABDOMEN: Distended, soft, nontender. NEUROLOGIC: She was awake, alert, responding appropriately. All cranial nerves intact. She moves extremities without difficulty. She ambulates without assistance or assistive devices. Her intake 1620, output was 600. LABORATORY WORK: Showed a white cell count 5900, hemoglobin 12, hematocrit 37, MCV 89 and platelet count of 182,000. Her serum sodium was 143, potassium 3.9, chloride 105, bicarbonate 29, anion gap of 9, BUN 18, creatinine is 1, estimated GFR was 57 mL per minute. Her glucose was 88, calcium was 8.5. Total bilirubin, AST, ALT, alkaline phosphatase were normal. Total protein 6.7, albumin was ____. ASSESSMENT: Right lower extremity cellulitis. The patient clinically responding. She is afebrile. Her white cell count is down. She has other medical problems including migraine headache, bronchial asthma, obstructive sleep apnea. PLAN: To continue with IV fluid. She has acute renal failure also. Her creatinine has come down from 1.5 to 1. Given her elevated D-dimer, we will arrange for her to have a CT angio of the chest to rule out the possibility of PE and if she continues to respond well by tomorrow, we can discharge her home on oral medication. BILLY PRIETO MD DR: Sahara JOB#: [id number] / [id number]
[2019-01-29 15:42] VITALS: BP 156/80
[2019-01-29 19:45] VITALS: BP 147/86
[2019-01-29] MEDS: ONDANSETRON PF 4 MG/2 ML VIAL. IVP PRN (20:35)
[2019-01-29] MEDS: diphenhydrAMINE HCL 25 MG CAPSULE PO PRN (22:30)
[2019-01-29 22:49] VITALS: BP 113/73
[2019-01-30 05:12] VITALS: BP 136/74
[2019-01-30 06:12] LABS: HEMATOCRIT 36.7 % (36.0-47.0); HEMOGLOBIN 11.9 g/dL (12.0-15.5); RED BLOOD COUNT 4.21 x10^6/uL (3.50-5.40); RED CELL DISTRIBUTION WIDTH 13.4 % (11.5-14.5); WHITE BLOOD COUNT 14.7 x10^3/uL (4.0-11.0)
[2019-01-30 06:22] LABS: CALCIUM 8.2 mg/dL (8.5-10.1); CREATININE 1.1 mg/dL (0.6-1.0); GFR 51.6; POTASSIUM 3.8 mmol/L (3.5-5.1)
[2019-01-30] MEDS: LACTOBACILLUS RHAMNOSUS GG 1 CAPSULE. PO SCH ×2 (09:50→21:16)
[2019-01-30] MEDS: FLUCONAZOLE 100 MG TABLET. PO SCH (09:50)
[2019-01-30] MEDS: SMZ/TMP 800/160MG TABLET. PO SCH (09:51)
[2019-01-30] MEDS: HYDROcodone/APAP 5/325MG 1 TAB TABLET PO PRN (09:54)
[2019-01-30 10:37] VITALS: BP 130/76
[2019-01-30 15:17] VITALS: BP 112/71
[2019-01-30 19:39] VITALS: BP 135/84
--- NOTE | 2019-01-30 19:44 | PN ---
DATE: SUBJECTIVE: The patient is sitting in her chair comfortably, in no apparent distress. The redness in the inner side of the thigh has apparently subsided; however, right leg still swollen and erythematous, although she is generally feeling much improved. She is afebrile. However, her white cell count for some reason went up again from 5900 to 14,700. She did have CT angio of the chest, which was negative for pulmonary embolism. PHYSICAL EXAMINATION: GENERAL: When I examined her today, she looked well and was clearly in no apparent respiratory distress. No pallor, jaundice, cyanosis or thyromegaly. No jugular venous distention. No limb edema. VITAL SIGNS: Her heart rate was 73, blood pressure was 130/76, temperature was 98.3, respiratory rate 20, and oxygen saturation was 96%. HEAD, EYES, EARS, NOSE AND THROAT: Normocephalic, atraumatic. NECK: Supple. HEART: Showed normal first and second heart sounds. No gallop, rub or murmur. CHEST: Clear to auscultation. No crepitation or rhonchi. ABDOMEN: Distended, soft, nontender. No guarding or rigidity. No organomegaly. All hernial orifice intact. Bowel sounds normal. NEUROLOGIC: She is awake, alert, responding appropriately. All cranial nerves intact. She moves extremities without difficulty. Her intake over the last 24 hours was 3300, no output was recorded. LABORATORY DATA: As of this morning, her white cell count was 14,700, hemoglobin 12, hematocrit 36, MCV 87 and platelet count 221,000. Her chemistry showed serum sodium 137, potassium 3.8, chloride 99, bicarbonate 28, anion gap of 10, BUN 8, creatinine 1.1, estimated GFR was 52 mL per minute. Her glucose was 117, calcium was 8.2. ASSESSMENT: 1. Right lower extremity cellulitis. The patient continued to be afebrile. White cell count percent went up. 2. Elevated D-dimer with negative venous Doppler ultrasound and CT angio of the chest for deep venous thrombosis and pulmonary embolism. 3. Other medical problems including: A. Migraine headache. 3. Bronchial asthma. C. Obstructive sleep apnea. PLAN: My plan is to discontinue Rocephin and start her on Zyvox. I will discontinue also fluconazole. I will repeat her lab work tomorrow and decide further management accordingly. BILLY PRIETO MD DR: Sahara JOB#: [id number] / [id number]
--- NOTE | 2019-01-30 22:00 | NUR ---
Went over plan of care with patient, patient voiced understanding. Call light within reach. Will continue to monitor. Patient leg still very red. Has PRN fentanyl for pain.
[2019-01-30 23:05] VITALS: BP 134/87
[2019-01-31] MEDS: HYDROcodone/APAP 5/325MG 1 TAB TABLET PO PRN ×4 (00:59→21:24)
[2019-01-31 05:44] VITALS: BP 105/62
[2019-01-31] MEDS: LACTOBACILLUS RHAMNOSUS GG 1 CAPSULE. PO SCH ×2 (08:07→20:05)
[2019-01-31] MEDS: ONDANSETRON PF 4 MG/2 ML VIAL. IVP PRN ×2 (08:20→21:24)
[2019-01-31] MEDS: diphenhydrAMINE HCL 25 MG CAPSULE PO PRN ×2 (08:26→21:24)
[2019-01-31 10:48] VITALS: BP 122/78
--- NOTE | 2019-01-31 12:52 | PN ---
DATE: 01/31/2019 SUBJECTIVE: The patient is resting, slightly propped up in bed, in no apparent respiratory distress. Awake, alert. Her erythema is improving as well as the swelling and improvement is much better compared to when since we started her on Zyvox and therefore, I recommended that she stay one more day to continue with IV Zyvox and hopefully tomorrow, she can be discharged home on oral Zyvox. PHYSICAL EXAMINATION: GENERAL: When I examined her this morning, she looked well and was clearly in no apparent respiratory distress. No pallor, jaundice, cyanosis or thyromegaly. No jugular venous distension. No lower limb edema. VITAL SIGNS: Her heart rate was 77, blood pressure was 105/62, temperature was 97.8, respiratory rate was 18 and oxygen saturation was 93%. The rest of clinical exam is stable. EXTREMITIES: Her right lower extremity continued to be swollen, but the erythema is fading and lymphangitis has largely resolved. LABORATORY DATA: As of yesterday showed a white cell count of 14,700, hemoglobin 11.9, hematocrit 36, MCV 87 and platelet count 221,000. Her chemistry showed that her serum sodium was 137, potassium 3.8, chloride 99, bicarbonate 28, anion gap of 10, BUN 8, creatinine 1.1, estimated GFR was 51 mL per minute. Her glucose 117, calcium was 8.8. ASSESSMENT: 1. Right lower extremity cellulitis, was continued to be afebrile. White cell count went up yesterday; however, the redness and swelling is subsiding. 2. Elevated D-dimer with negative venous Doppler ultrasound as well as CT angiogram for deep vein thrombosis and pulmonary embolism. 3. Other medical problems include migraine headache, bronchial asthma, obstructive sleep apnea. PLAN: To continue with IV Zyvox today and tomorrow, she can be switched to oral Zyvox and can be discharged home. BILLY PRIETO MD DR: SOLOMON/skinny JOB#: [id number] / [id number]
[2019-01-31 14:23] VITALS: BP 125/81
[2019-01-31 18:41] VITALS: BP 131/88
--- NOTE | 2019-01-31 21:00 | NUR ---
Went over plan of care with patient, patient voiced understanding. Call light within reach. Will continue to monitor. Patient leg looking better. Still painful. Patient tolerating PO pain medication PRN for pain.
[2019-02-01] MEDS: HYDROcodone/APAP 5/325MG 1 TAB TABLET PO PRN ×2 (00:45→07:58)
[2019-02-01 05:22] VITALS: BP 99/64
[2019-02-01 06:33] LABS: HEMATOCRIT 35.1 % (36.0-47.0); HEMOGLOBIN 11.7 g/dL (12.0-15.5); RED BLOOD COUNT 4.03 x10^6/uL (3.50-5.40); RED CELL DISTRIBUTION WIDTH 13.8 % (11.5-14.5); WHITE BLOOD COUNT 12.4 x10^3/uL (4.0-11.0)
[2019-02-01 06:59] LABS: CALCIUM 8.4 mg/dL (8.5-10.1); GFR 57.6; POTASSIUM 3.9 mmol/L (3.5-5.1)
[2019-02-01] MEDS: LACTOBACILLUS RHAMNOSUS GG 1 CAPSULE. PO SCH (09:25)
[2019-02-01] MEDS ORDERED: LINE600T12 PO (10:11)
[2019-02-01 10:23] VITALS: BP 144/83
--- NOTE | 2019-02-01 11:01 | DS ---
DATE OF DISCHARGE: HOSPITAL COURSE: The patient is a 53-year-old female patient who was admitted with marked redness, swelling, pain and fever of the right leg with erythema extending all the way to the right groin. The patient had similar episodes of cellulitis before. She denied any trauma. Her symptoms started about 24 hours ago. She was evaluated in the Emergency Room. At that time, she was febrile with temperature of 103.3. She was tachycardic, tachypneic. Her white cell count was 21,000. She was also slightly dehydrated, has abnormal liver enzyme and acute kidney injury. Her white cell count came down from 21,000 to 12,000. Her kidney function has also improved. Her creatinine came down from 1.5 to 1. She has been afebrile throughout her stay here. The redness and swelling and lymphangitis has largely subsided and the patient was discharged home to continue treatment on oral antibiotic. PHYSICAL EXAMINATION: GENERAL: When I saw her today, she looked well and was clearly in no apparent respiratory distress. No pallor, jaundice, cyanosis or thyromegaly. No jugular venous distention. No limb edema. VITAL SIGNS: Her heart rate was 76, blood pressure was 99/64, temperature 97.7, respiratory rate was 18 and oxygen saturation was 94%. HEAD, EYES, EARS, NOSE AND THROAT: Showed normocephalic, atraumatic. NECK: Supple. HEART: Showed normal first and second heart sounds. No gallop or murmur. CHEST: Clear to auscultation. No crepitation or rhonchi. ABDOMEN: Distended, soft, nontender. NEUROLOGIC: She is awake, alert, responding appropriately. All cranial nerves are intact. EXTREMITIES: She moves extremities without difficulty. She ambulates without assistance or assistive devices. Her right lower extremity continued to be slightly more swollen; although, the erythema has largely subsided. She did have a venous Doppler ultrasound of her right lower extremity, which showed that there is normal Doppler color flow and compressibility of all visualized vein segments. No evidence of deep vein thrombosis present. She did have also arterial duplex ultrasound, which showed no significant peripheral arterial disease of the right lower extremity. Given her elevated D-dimer, we did a CT angio after her creatinine improved and it showed no evidence of pulmonary thromboembolic disease and no infiltrate. DISCHARGE MEDICATIONS: The patient was discharged home to continue on following medications: Albuterol sulfate 1 puff every 6 hours, citalopram 20 mg once a day, Breo Ellipta 1 puff once a day, Singulair 10 mg once a day, propranolol 60 mg once a day. She was also discharged on Zyvox 600 mg twice a day for 7 days. FINAL DISCHARGE DIAGNOSES: 1. Right lower extremity cellulitis, improving. The redness and swelling are fading. The lymphangitis has completely resolved. 2. Elevated D-dimer with negative venous Doppler ultrasound and CT angio for deep vein thrombosis and pulmonary embolism. 3. Other medical problems include: A. Migraine headache. B. Bronchial asthma. C. Obstructive sleep apnea. The patient should continue on Zyvox 600 mg twice a day for 7 more days. She may return to work on 02/08/2019. BILLY PRIETO MD DR: SOLOMON/skinny JOB#: [id number] / [id number]
--- NOTE | 2019-02-01 12:35 | NUR ---
Discharge Note Discharge instructions reviewed with patient. Patient verbal understanding about food interaction while taking Zyvox. Patient verbal understanding on follow up care and action to take if symptoms does not resolve or worsen. Significant other is driving patient back home. Patient preferred to walk out of the facility without assistance. All belongings with patient.
== END 2019-02-01 12:41 | disposition home or self-care (01) | DRG 871 ==
LOC: ER 17:10 → 1 SOUTH 18:45
PROVIDERS: ADMIT Internal Medicine; ATTEND Internal Medicine
DX: A41.9 Sepsis, unspecified organism (principal); N17.0 Acute kidney failure with tubular necrosis; L03.115 Cellulitis of right lower limb; E87.1 Hypo-osmolality and hyponatremia; E86.0 Dehydration; G43.909 Migraine, unspecified, not intractable, without status migrainosus; G47.33 Obstructive sleep apnea (adult) (pediatric); I10 Essential (primary) hypertension; J45.909 Unspecified asthma, uncomplicated; F32.9 Major depressive disorder, single episode, unspecified; F41.9 Anxiety disorder, unspecified; M19.90 Unspecified osteoarthritis, unspecified site; E83.42 Hypomagnesemia; Z82.49 Family history of ischemic heart disease and other diseases of the circulatory system; Z82.5 Family history of asthma and other chronic lower respiratory diseases; Z86.14 Personal history of Methicillin resistant Staphylococcus aureus infection; Z88.1 Allergy status to other antibiotic agents; Z90.710 Acquired absence of both cervix and uterus; Z90.49 Acquired absence of other specified parts of digestive tract; Z88.8 Allergy status to other drugs, medicaments and biological substances
CPT/HCPCS: 36415; 71045; 71275; 80048; 80053; 80076; 82550; 83605; 83690; 83735; 83880; 84443; 84484; 85007; 85025; 85027; 85379; 85610; 85730; 86705; 86709; 86803; 87040; 87340; 93005; 93923; 93971; 96365; 96366; 96367; 96372; G0238; J0696; J1450; J1650; J2020; J2405; J3010; J3490; J7120; Q0163; Q9967; 99285-25